=== PATIENT | male | born 1955 | race Caucasian/White ===

== ENCOUNTER 2019-12-23 03:10 | Inpatient (IN) | payer MEDICARE, OTHER, SELFPAY ==
[2019-12-23] VITALS (7 sets, daily range): BP systolic 106–152; BP diastolic 50–99; PULSE 74–90; RESP 16–20; TEMP 36.4–37.7; O2SAT 93–98
--- NOTE | ~2019-12-23 | XR_ITS ---
EXAMINATION: XR abdomen/kub 1V DATE: 12/27/2019 06:06 INDICATION: Perforated diverticulitis. Vomiting and bloating. TECHNIQUE: A supine view of the abdomen on 2 radiographs was obtained. COMPARISON: CT abdomen and pelvis 12/26/2019 FINDINGS: There are multiple dilated loops of small bowel. The colon is decompressed. IMPRESSION: 1. Dilated small bowel, consistent with small bowel obstruction. Reviewed, dictated and finalized at location A. E OPERATOR
--- NOTE | ~2019-12-23 | CT_ITS ---
EXAMINATION: CT abdomen pelvis w con DATE: 12/26/2019 08:03 INDICATION: Diverticulitis with perforation TECHNIQUE: Computed tomography (CT) of the abdomen and pelvis was performed without intravenous contr ast. Automated exposure control and iterative reconstruction technique were employed. Exam dose: 772 .99 mGy-cm total exam DLP. COMPARISON: 12/23/2019 CT abdomen pelvis FINDINGS: Mild bilateral pleural effusions. There is bilateral lower lobe atelectasis. The gallbladder is present. No gallbladder wall thickening or abnormal pericholecystic fluid or stran ding. No bile duct or pancreatic duct dilatation. No hepatic or pancreatic space-occupying mass lesio n. Normal splenic size. Normal morphology of the adrenal glands. No renal mass lesion. Nonobstructive mild lower pole left nephrolithiasis. No urinary tract calculus or hydroureteronephrosis. The urinary bladder is unremarkable. Moderate prostate enlargement and calc ification. Normal caliber of the abdominal aorta. No intraperitoneal or retroperitoneal or pelvic mass lesion or adenopathy. Normal appendix. There are numerous diverticula of the sigmoid and descending colon. There is pericolic stranding in t he sigmoid area and sigmoid wall thickening. There is prominent amount of intraperitoneal free air se condary to sigmoiditis/sigmoid colon perforation. There is an up to 5.6 cm wide and 5.5 cm anteropost erior dimension diverticular abscess with small fluid levels and prominent amount of air in the anter ior mid lower abdomen at the anterosuperior aspect of the urinary bladder. Diffuse idiopathic skeletal hyperostosis of the included lower thoracic spine. No suspicious osteolyt ic or osteoblastic lesions are noted. IMPRESSION: Perforated sigmoid diverticulitis, diverticular abscess, prominent amount of intraperito sal free air Mild bilateral pleural effusions, bilateral lower lobe atelectasis Nonobstructive lower pole left nephrolithiasis Reviewed, dictated and finalized at Location A. Reviewed, dictated and finalized at location A. CAL VAN DRIVER IMPRESSION: Perforated sigmoid diverticulitis, diverticular abscess, prominent amount of intraperitoneal free air Mild bilateral pleural effusions, bilateral lower lobe atelectasis Nonobstructive lower pole left nephrolithiasis
--- NOTE | ~2019-12-23 | XR_ITS ---
EXAMINATION: XR abdomen NG/feed tube insert EXAM DATE: 12/27/2019 10:04 INDICATION: Feeding tube insertion. Perforated sigmoid diverticulitis. TECHNIQUE: Frontal projection(s) of the abdomen for interpretation. Comparison is made to prior exami nation from earlier same date. FINDINGS: There is large amount of free intraperitoneal gas as was reported on yesterday's CT scan. There are several loops of moderately dilated air-filled small bowel, probably ileus. Lung bases are unremarkable. Feeding tube tip and side-port project over gastric cardia, adequate. IMPRESSION: 1. Feeding tube tip in position. 2. Free intraperitoneal air. 3. Dilated small bowel probably ileus. Reviewed, dictated and finalized at location A. ACCOUNTANT
--- NOTE | ~2019-12-23 | CT_ITS ---
EXAMINATION: CT abdomen pelvis wo con DATE: 12/23/2019 04:24 INDICATION: Lower abdominal pain TECHNIQUE: Computed tomography (CT) of the abdomen and pelvis was performed without intravenous contr ast. The dose-length product (DLP) was 798.01 mGy-cm. Automated exposure control and iterative recons truction technique were employed. COMPARISON: None FINDINGS: Minimal dependent atelectasis is present in the lung bases. The heart size is normal. The l iver, spleen, pancreas, gallbladder, and adrenal glands are normal. The right kidney is unremarkable. There is a 7 mm nonobstructing stone left kidney lower pole. No pathologically enlarged abdominal or pelvic lymph nodes are identified. There is sigmoid diverticulosis with wall thickening seen and a s hort segment of sigmoid colon with edematous stranding of the adjacent perisigmoid fat. There our foc i of free intraperitoneal gas adjacent to the colon which also tracks into the upper abdomen. No defi nite abscess is identified. The bladder is decompressed by Topete catheter. There is mild lumbar spond ylosis. IMPRESSION: 1. Perforated sigmoid diverticulitis. These findings were discussed with Dr. Rylan Monk MD in the Emergency Department at 0452 hours on 12/23/2019 by the [facility] Radiologist. 2. Nonobstructing left nephrolithiasis. Reviewed, dictated and finalized at location A. LASTER IMPRESSION: 1. Perforated sigmoid diverticulitis. These findings were discussed with Dr. Gina Monk MD in the Emergency Department at 0452 hours on 12/23/2019 by [facility] Radiologist. 2. Nonobstructing left nephrolithiasis.
--- NOTE | ~2019-12-23 | XR_ITS ---
EXAMINATION: XR abdomen NG/feed tube rechec INDICATION: Nasogastric tube placement TECHNIQUE: Portable AP KUB-NG at 1100 hours COMPARISON: 0530 hours, 12/28/2019, 12/27/2019 FINDINGS: The nasogastric tube is in the stomach. There is a large amount of free intraperitoneal gas . Air-fluid levels are seen in small bowel loops of the mid abdomen. IMPRESSION: 1. Slight increase in free intraperitoneal gas intraperitoneal gas, consistent with perforated sigmoi d diverticulitis. 2. Nasogastric tube in the stomach. 3. Small bowel obstruction. Reviewed, dictated and finalized at location A. DIRECTOR/FINANCE IMPRESSION: 1. Slight increase in free intraperitoneal gas intraperitoneal gas, consistent with perforated sigmoid diverticulitis. 2. Nasogastric tube in the stomach. 3. Small bowel obstruction.
--- NOTE | ~2019-12-23 | XR_ITS ---
EXAMINATION: XR abdomen/kub 1V DATE: 01/01/2020 05:32 INDICATION: Adynamic ileus. TECHNIQUE: A supine view of the abdomen was obtained. COMPARISON: Abdomen radiograph 12/30/2019, small bowel series 12/31/2019, CT abdomen and pelvis 12/26/19 20 FINDINGS: There are multiple dilated loops of small bowel. There is oral contrast in the colon, which is decompressed. There are scattered diverticula in the colon. The nasogastric tube tip is in the st omach. IMPRESSION: 1. Persistently dilated small bowel, consistent with adynamic ileus versus partial small bowel obstru ction. Reviewed, dictated and finalized at location A. ERSITY REGISTRAR IMPRESSION: 1. Persistently dilated small bowel, consistent with adynamic ileus versus part ial small bowel obstruction.
--- NOTE | ~2019-12-23 | XR_ITS ---
EXAMINATION: XR abdomen/kub 1V INDICATION: Small bowel obstruction TECHNIQUE: Supine views of the abdomen were obtained on 2 radiographs. COMPARISON: 12/28/2019 FINDINGS: There are persistently dilated loops of small bowel in the midabdomen which demonstrate sli ght decrease in caliber. The colon remains decompressed. Fewer foci of free intraperitoneal gas are i dentified. IMPRESSION: 1. Persistently dilated small bowel with slight in caliber, likely small bowel obstruction. 2. Fewer foci of free intraperitoneal gas identified. Reviewed, dictated and finalized at location A. EAR SECURITY OFFICER
--- NOTE | ~2019-12-23 | XR_ITS ---
XR abdomen/kub 1V 12/30/2019 05:41 Indication: Small bowel obstruction Procedure: KUB Comparison: Comparison to multiple prior studies sequentially, with oldest reviewed study dated 12/27. Findings: NG tube not definitely visualized on current study. There are dilated small bowel loops espinoza suring up to 4.8 cm. The colon is relatively decompressed. No abnormal calcifications. Impression: 1: Persistent small bowel dilation compatible with obstruction. Reviewed, dictated and finalized at location A. CTOR MISSION Impression: 1: Persistent small bowel dilation compatible with obstruction.
--- NOTE | ~2019-12-23 | XR_ITS ---
EXAMINATION: XR UGI water soluble w sbs DATE: 12/31/2019 10:00 INDICATION: Small bowel obstruction, perforated diverticulitis TECHNIQUE: Water-soluble contrast was infused through the nasogastric tube. Conventional supine abdom en radiographs and fluoroscopy of the stomach and small bowel were performed. Fluoroscopy exposure ti me was 2.7 minutes. The DAP for this procedure was 87 Gycm2. COMPARISON: 12/30/2019 FINDINGS: UPPER GASTROINTESTINAL SERIES: The stomach shows a normal folding pattern. No reflux was identified. Areas of free intraperitoneal g as were observed during real-time fluoroscopy. SMALL BOWEL SERIES: Obstetrics Gyn image demonstrates multiple persistently dilated loops of bowel in the midabdomen. The nasogast madeleine tube is in the stomach. Transit time from the stomach to proximal colon was approximately 90 deyvi anika. Terminal ileum is normal. No tethering or abnormal mass effect observed upon the small bowel wi th real-time fluoroscopy. Small bowel activity and peristalsis is decreased. IMPRESSION: 1. Findings consistent with small bowel ileus. 2. Free intraperitoneal gas, consistent with history of perforated diverticulitis. Reviewed, dictated and finalized at location A. BILITATION CASE COORDINATOR IMPRESSION: 1. Findings consistent with small bowel ileus. 2. Free intraperitoneal gas, consistent with history of perforated diverticulit is.
--- NOTE | ~2019-12-23 | XR_ITS ---
EXAMINATION: XR abdomen/kub 1V DATE: 12/28/2019 07:35 INDICATION: Small bowel obstruction. Abdominal discomfort. TECHNIQUE: A supine view of the abdomen on 2 radiographs was obtained. COMPARISON: CT abdomen and pelvis 12/26/2019 FINDINGS: There are multiple dilated loops of small bowel. The colon is decompressed. Free intraperit ring gas is again seen. The nasogastric tube tip is in the stomach. IMPRESSION: 1. Persistently dilated small bowel, likely small bowel obstruction. 2. Free intraperitoneal gas, consistent with perforated sigmoid diverticulitis. Reviewed, dictated and finalized at location A. MANAGER
[2019-12-23 03:33] LABS: Basophils Percent Auto 0.2 % (0.2-1.2); Hematocrit 45.3 % (42.0-52.0); Hemoglobin 15.3 g/dL (14.0-18.0); Immature Granulocyte Percent A 0.4 % (0-0.5); Lymphocytes Absolute Auto 3.17 K/mm3 (0.9-3.2); Lymphocytes Percent Auto 12.7 % (18.3-44.2); Mean Corpuscular HGB Conc 33.8 g/dl (32-36); Mean Corpuscular Hemoglobin 30.6 pg (26-34); Mean Corpuscular Volume 90.6 fl (80-100); Mean Platelet Volume 11.1 fl (7.4-10.4); Monocytes Absolute Auto 1.8 K/mm3 (0.1-0.6); Monocytes Percent Auto 7.3 % (2.6-8.5); Neutrophils Absolute Auto 19.8 K/mm3 (1.3-6.7); Neutrophils Percent Auto 79.4 % (45.5-73.1); Platelet Count Result 253 k/mm3 (150-375); Red Cell Distribution Width 12.7 % (11.5-14.5)
[2019-12-23 03:47] LABS: Alanine Aminotransferase 25 U/L (4-50); Albumin Level 4.5 g/dL (3.5-5.1); Alkaline Phosphatase 68 U/L (38-126); Aspartate Amino Transferase 22 U/L (17-59); Bilirubin,Total 0.4 mg/dL (0.2-1.3); Blood Urea Nitrogen 23 mg/dL (9-20); Calcium 9.2 mg/dL (8.4-10.2); Carbon Dioxide 23 mmol/L (22-30); Chloride 103 mmol/L (98-107); Estimated CRCL calculation 80 ml/min; Estimated Glomerular Filt Rate > 60; Glucose 162 mg/dL (75-110); Lipase 69 U/L (23-300); Potassium 3.9 mmol/L (3.4-5.0); Sodium 139 mmol/L (137-145)
[2019-12-23 04:15] LABS: Add Urine Microscopic? YES; Appearance Urine Clear (Clear); Bilirubin Urine Negative (Negative); Blood Urine 2+ (Negative); Color Urine Yellow (Yellow); Glucose Urine UA 3+ mg/dL (Negative); Ketones Urine Trace mg/dL (Negative); Leukocyte Esterase Ur Negative LEU/UL (Negative); Mucus Urine Rare /lpf; Nitrate Urine Negative (Negative); Protein Urine Negative (Negative); RBC Urine 21-50 /hpf (0-2); Specific Grav Ur 1.026 (1.001-1.035); Urobilinogen Urine Negative mg/dL (<2.0); WBC Urine 0-3 /hpf
[2019-12-23] MEDS: MORPHINE SULFATE 4 MG/ML INJ IV PUSH ×6 (04:37→22:55)
[2019-12-23] MEDS: ONDANSETRON INJ 4 MG/2 ML VIAL IV PUSH (04:38)
--- NOTE | 2019-12-23 04:55 | ED.ABDPAIN ---
HPI - Abdominal Pain General Chief Complaint: Abdominal Pain Stated Complaint: LOWER ABD PAIN Time Seen by Provider: 12/23/19 03:40 History of Present Illness HPI narrative: Patient is a 64-year-old male who presents the ER with lower abdominal pain. Began at 5 PM. Slowly increased throughout the night and then became very sharp around 1 AM. Pain is worsened by any movements. It is associated with some nausea and vomiting. Feels like he has to urinate but cannot at this time. Patient thought passing stool would help his pain but did not. Had not had a prodrome of diarrhea/fever/chills preceding this. No history of kidney stones. Denies blood in his urine. Related Data Home Medications Medication Instructions Recorded Confirmed ergocalciferol (vitamin D2) 1,250 50,000 unit PO WEEKLY 10/11/19 12/23/19 mcg (50,000 unit) capsule rosuvastatin 10 mg tablet 10 mg PO DAILY 10/11/19 12/23/19 hydrocodone-acetaminophen 2 tablet PO Q6-12H 12/23/19 12/23/19 prednisone 10 mg PO DAILY 12/23/19 12/23/19 Allergies Allergy/AdvReac Type Severity Reaction Status Date / Time No Known Allergies Allergy Mild Verified 12/23/19 03:19 Review of Systems Review of Systems: All systems reviewed & are unremarkable except as noted in HPI and below Constitutional: Constitutional: Denies chills, Denies fever(s) and Denies weakness ENT: Denies dizziness and Denies sore throat Cardiovascular: Cardiovascular: Denies chest pain and Denies rapid heart rate Respiratory: Respiratory: Denies chest congestion, Denies cough and Denies dyspnea Gastrointestinal: Gastrointestinal: Reports abdominal pain, Denies constipation, Denies diarrhea, Reports nausea and Reports vomiting Genitourinary: Genitourinary: Denies hematuria, Denies dysuria and Denies urinary frequency FORMERLY [facility], [facility]–1983 Past Medical History Medical History (Updated 12/23/19 @ 05:43 by Rylan Monk MD) Bunion of great toe Elevated random blood glucose level Mixed hyperlipidemia Surgical History Surgical History (Updated 12/21/19 @ 16:15 by Tricia Rodriguez MD) History of bunionectomy of right great toe History of surgical removal of meniscus of knee R andi Family History Family History (Updated 06/04/16 @ 23:21 by DOCTOR UNKNOWN) Mother Patient's mother is in good health Family history of elevated blood lipids Family history of malignant neoplasm of breast in first degree relative, Onset Age: 41 Father Patient's father is Family history of elevated blood lipids Social History Social History (Updated 12/21/19 @ 09:06 by Melissa Hernandez) Social History: Smoking status: Never smoker Second hand tobacco smoke exposure: No Alcohol intake: never Substance use: never Substance use type: does not use Gender identity (if verbalized by the patient): Male Exam Narrative: Exam Narrative: GENERAL: Uncomfortable-appearing, well-nourished, and in no acute distress. HEAD: Normocephalic, atraumatic. ENT: Mucous membranes moist. CHEST: Clear to auscultation. No respiratory distress. HEART: Regular rate and rhythm. Normal peripheral pulses. ABDOMEN: Soft, tender palpation bilateral lower quadrants left greater than right with guarding, nondistended, normal active bowel sounds. EXTREMITIES: Normal range of motion. No edema. SKIN: Warm, dry, no rash. NEURO: Alert and oriented x3. PSYCH: Normal mood and affect. Course Course Emergency Course: Patient informed of diagnosis and treatment plan. Accepted by general surgery. Started on Zosyn to treat infection. Will keep n.p.o. Vital Signs Vital signs: Vital Signs Temperature 97.6 F 12/23/19 03:11 Pulse Rate 78 12/23/19 03:11 Respiratory Rate 16 12/23/19 03:11 Blood Pressure 152/99 H 12/23/19 03:11 Pulse Oximetry 98 12/23/19 03:11 Temperature 97.6 F 12/23/19 03:11 Pulse Rate 74 12/23/19 05:09 Respiratory Rate 20 12/23/19 05:09 Blood Pressure 13
[2019-12-23 05:10] LABS: Prothrombin Time 13.1 Seconds (11.1-14.7)
[2019-12-23 05:11] LABS: Partial Thromboplastin Time 21.4 SECONDS (22.3-36.8)
--- NOTE | 2019-12-23 06:31 | ADMGEN ---
This patient, Huang Santamaria, was admitted to 3 [facility] Surg Room 300-01. Patient/family oriented to hospital policies and general routines including ID bracelet, bed and alarms, visiting hours, pain management, procedures, bathroom and other care routines, personal items, smoking policy, room service/diet, and visiting hours. Valuables list has been completed. Information on how to activate the Rapid Response Team has been discussed. Patient/Family are encouraged to report perceived risks to care and to ask questions if they do not understand what they are told or what they should do.
[2019-12-23] MEDS: SODIUM CHLORIDE 0.9% IV 1,000 ML 125 ML IV CONT (06:55)
--- NOTE | 2019-12-23 10:13 | PM.IMHP ---
H&P: HPI History of Present Illness Chief complaint: DIVERTUCULITIS WITH PERFOARTION Narrative: Huang Santamaria is a 64 year old male who saw his primary care doctor on , December 21 2019, for right lower back pain. This was diagnosed as sacroiliitis. He was started on 40 mg prednisone daily with a tapering dose. He took 40 mg of prednisone on Tuesday and again yesterday. He also was given a script for Tizanidine 2 mg p.o. t.i.d. p.r.n. for muscle spasticity. Yesterday, the patient started having lower abdominal pain in the evening about 5:00 p.m.. This pain was in both lower quadrants and was much worse with any movement. He felt as though he had to urinate but could not. He did have some nausea and vomiting. He tried to have a bowel movement thinking this would help but it did not either. Pain became very severe about 1:00 a.m. today and he came to the emergency room.. He was sewn comfortable he had walk somewhat doubled over. He was noted to have severe abdominal tenderness in both lower quadrants left more than right. He did abnormal active bowel sounds and was not distended. His white blood cell count however was quite elevated at 25,000. He was not febrile or tachycardic. CT scan of the abdomen and pelvis showed acute diverticulitis with some agata sigmoid free air. No sign of abscess or fistula were noted. He has not had diverticulitis before this episode. He is admitted now for acute treatment of diverticulitis. Review of Systems Review of Systems: All systems reviewed & are unremarkable except as noted in HPI and below Constitutional: Constitutional: Denies headache(s) ENT: Denies headache(s) Cardiovascular: Cardiovascular: Denies chest pain and Denies dyspnea Respiratory: Respiratory: Denies cough and Denies dyspnea Gastrointestinal: Gastrointestinal: Reports as per HPI Neurologic: Denies confusion and Denies headache(s) Psychiatric: Psychiatric: Denies confusion [facility] Past Medical History Medical History Bunion of great toe Elevated random blood glucose level Mixed hyperlipidemia Surgical History Surgical History History of bunionectomy of right great toe History of surgical removal of meniscus of knee R andi Family History Family History Mother Family history of elevated blood lipids Patient's mother is in good health Family history of malignant neoplasm of breast in first degree relative, Onset Age: 41 Father Family history of elevated blood lipids Patient's father is Skin cancer Social History Social History Social History: Smoking packs per day: 1 Smoking cigarettes per day: 20.0 Years smoked: 23 Smoking pack-years: 23.00 Smoking status: Former smoker Tobacco type: cigarettes Second hand tobacco smoke exposure: No Alcohol intake: former Drinks per week: 20 Substance use: never Substance use type: does not use Gender identity (if verbalized by the patient): Male Spiritual care concerns: No Agree to blood products: Yes Meds Home Medications and Allergies Home Medications Medication Instructions Recorded Confirmed Type ergocalciferol (vitamin D2) 1,250 50,000 unit PO WEEKLY 10/11/19 12/23/19 History mcg (50,000 unit) capsule rosuvastatin 10 mg tablet 10 mg PO DAILY 10/11/19 12/23/19 History tizanidine 2 mg tablet 2 mg PO TID PRN #30 tablet 12/21/19 12/23/19 Rx hydrocodone-acetaminophen 1 - 2 tablet PO Q6H PRN 12/23/19 12/23/19 History polyethylene glycol 3350 17 g PO DAILY PRN 12/23/19 12/23/19 History prednisone 10 mg PO DAILY 12/23/19 12/23/19 History vit A,C and V-[id number] [Eye 1 tablet PO DAILY 12/23/19 12/23/19 History Health Plus Lutein] Allergies Allergy/AdvReac Type Sev
[2019-12-23] MEDS: IBUPROFEN IV 800 MG/200 ML 800 MG/200 ML BAG 400 MG IVPB ×3 (13:28→22:57)
[2019-12-23] MEDS: FAMOTIDINE 20 MG/2 ML VIAL IV PUSH ×2 (13:29→20:09)
[2019-12-23] MEDS: ENOXAPARIN 40 MG/0.4 ML SYRINGE SUB-Q (13:29)
[2019-12-23] MEDS: LACTATED RINGERS 1,000 ML 100 ML IV CONT ×2 (15:43→23:37)
[2019-12-24] MEDS: MORPHINE SULFATE 4 MG/ML INJ IV PUSH ×3 (02:35→06:54)
[2019-12-24] MEDS: IBUPROFEN IV 800 MG/200 ML 800 MG/200 ML BAG 400 MG IVPB ×4 (05:26→23:35)
[2019-12-24 06:00] VITALS: BP 102/58; PULSE 86; RESP 18; TEMP 37.7; O2SAT 94
[2019-12-24 06:01] LABS: Blood Urea Nitrogen 18 mg/dL (9-20); Calcium 8.5 mg/dL (8.4-10.2); Carbon Dioxide 26 mmol/L (22-30); Chloride 100 mmol/L (98-107); Estimated CRCL calculation 72 ml/min; Estimated Glomerular Filt Rate > 60; Glucose 97 mg/dL (75-110); Hematocrit 38.9 % (42.0-52.0); Hemoglobin 12.7 g/dL (14.0-18.0); Mean Corpuscular HGB Conc 32.6 g/dl (32-36); Mean Corpuscular Hemoglobin 30.6 pg (26-34); Mean Corpuscular Volume 93.7 fl (80-100); Mean Platelet Volume 11.2 fl (7.4-10.4); Platelet Count Result 180 k/mm3 (150-375); Potassium 3.7 mmol/L (3.4-5.0); Red Blood Count 4.15 M/mm3 (4.6-6.20); Sodium 138 mmol/L (137-145); White Blood Count 17.2 K/mm3 (4.5-10.0)
[2019-12-24] MEDS: ENOXAPARIN 40 MG/0.4 ML SYRINGE SUB-Q (08:21)
[2019-12-24] MEDS: FAMOTIDINE 20 MG/2 ML VIAL IV PUSH ×2 (08:21→20:57)
--- NOTE | 2019-12-24 09:25 | WPDCDIQUERY2 ---
CDI Query Clarification Request - History of Present Illness Chief complaint: DIVERTUCULITIS WITH PERFORATION documented in H&P -Problem list has Diverticulitis of large intestine without perforation or abscess without bleeding Please clarify if diverticulitis is with or without perforation. <Geovanna Guerra RN - Last Filed: 12/24/19 09:28> Clarified Diagnosis (1) Diverticulitis large intestine: Code(s): K57.32 - Diverticulitis of large intestine without perforation or abscess without bleeding <Geovanna Guerra RN - Last Filed: 12/24/19 09:28> Status: Acute <Geovanna Guerra RN - Last Filed: 12/24/19 09:28> Assessment and Plan: This is confusing because all diverticulitis involves a perforation. In this case, the perforation occurred but has sealed at the time of admission. This is the case in nearly all episodes of diverticulitis. There is no code for diverticulitis of the large intestine with perforation without abscess to my knowledge. Thus, we are stuck with K 57.32. <Antwon Muñoz MD - Last Filed: 12/24/19 17:41>
[2019-12-24] MEDS: MORPHINE SULFATE 4 MG/ML INJ 5 MG IV PUSH ×3 (10:34→22:03)
[2019-12-24] MEDS: LACTATED RINGERS 1,000 ML 100 ML IV CONT (10:35)
[2019-12-24] MEDS: GENTAMICIN SULFATE INJ 400 MG in DEXTROSE 5% 100 ML 100 MG IVPB (10:35)
--- NOTE | 2019-12-24 11:01 | PM.PNGS ---
Progress Note: A&P Assessment and Plan (1) Diverticulitis large intestine: Code(s): K57.32 - Diverticulitis of large intestine without perforation or abscess without bleeding Status: Acute Assessment and Plan: Patient improving and WBC trending down, although still having a significant amount of abdominal pain. Will keep NPO except ice chips today Continue IV antibiotics Repeat labs in the am (2) Sacroiliitis: Code(s): M46.1 - Sacroiliitis, not elsewhere classified Status: Acute Assessment and Plan: Previously seen by his PCP. No significant complaints of back pain currently. (3) Current use of steroid medication: Code(s): Z79.52 - intermediate (current) use of systemic steroids Status: Acute Assessment and Plan: Steroids on hold. Subjective Subjective Date/Time Seen: 12/24/19 10:20 Patient reports: no new complaints, pain is less, no flatus and no bowel movement Interval history: Patient seen and examined. Reports he is still having generalized abdominal pain that is worse in the left lower abdomen. He does feel the pain is slightly better today. Denies nausea or vomiting since the ER. Still feels bloated. No other complaints at this time. Low grade fever overnight 37.7C. WBC down to 17,200 today. Review of Systems Review of Systems: All systems reviewed & are unremarkable except as noted in HPI and below Exam Const: General: comfortable, no acute distress, alert and awake GI: Inspection: non-distended GI Palp: Yes Firmness to palpation present (GI), Yes Tenderness to palpation present (GI) (diffusely tender but worse in the lower quadrants), Yes Guarding due to palpation present (GI) and No Rebound tenderness present Auscultation: normal bowel sounds Urinary Catheter: Urinary Catheter: patent and draining Skin: General skin exam: normal color Psych: Mental Status: mental status grossly normal Affect: normal affect Attitude: cooperative Thought process: Normal thought process present Objective Data Vital Signs Vital Signs: Vital Signs - 24 hr 12/23/19 13:39 12/23/19 21:39 12/24/19 06:00 Temperature 37.7 C H 37.7 C H 37.7 C H Pulse Rate 90 81 86 Respiratory Rate 20 16 18 Blood Pressure 108/61 106/50 L 102/58 L Pulse Oximetry 94 93 94 Intake/Output Intake/Output: Intake & Output 12/21/19 12/22/19 12/23/19 12/24/19 23:59 23:59 23:59 23:59 Intake Total 2710 1320 Output Total 700 350 Balance 2009 970 Meds/Results Medications: Active Medications Generic Name Dose Route Start Last Admin Trade Name Freq PRN Reason Stop Dose Admin Acetaminophen 1,000 mg 12/23/19 10:02 Tylenol Tablet PO Q6H PRN Mild Pain (1-3) or Fever Enoxaparin Sodium 40 mg 12/24/19 09:00 12/24/19 08:21 Lovenox SUB-Q 40 mg DAILY GHASSAN Administration Famotidine 20 mg 12/23/19 21:00 12/24/19 08:21 Pepcid Iv IV PUSH 20 mg Q12HR GHASSAN Administration Lactated Ringer's 1,000 mls @ 100 mls/hr 12/23/19 10:05 12/24/19 10:35 Lr - Lactated Ringers Iv IV CONT 100 mls/hr .Q10H GHASSAN Administration Ibuprofen 800 mg in 200 mls @ 400 mls/hr 12/23/19 12:00 12/24/19 06:25 Caldolor 800 Mg/200 Ml IVPB Infused Q6H GHASSAN Infusion Piperacillin/Tazobactam/Dextrose 3.375 gm in 50 mls @ 100 mls/hr 12/23/19 19:15 12/24/19 06:52 Zosyn 3.375 Gm/D5w 50ml Pm IVPB Infused Q6HR GHASSAN Infusion Gentamicin Sulfate 400 mg/ 110 mls @ 100 mls/hr 12/24/19 10:00 12/24/19 10:35 Dextrose IVPB 12/24/19 11:05 100 mls/hr ONCE ONE Administration Gentamicin Sulfate 400 mg/ 110 mls @ 100 mls/hr 12/25/19 10:00 Dextrose IVPB PRN PRN PHARMACY DOSING Morphine Sulfate 3 mg 12/24/19 08:51 Morphine Sulfate Inj IV PUSH Q2H PRN Pain Rated 4-6 Morphine Sulfate 5 mg 12/24/19 08:51 12/24/19 10:34 Morphine Sulfate Inj IV PUSH 5 mg Q2H PRN Administration Pain Rated 7-10 Naloxone HCl 0.1 mg
[2019-12-24 14:00] VITALS: BP 121/83; PULSE 74; RESP 18; TEMP 36.3; O2SAT 100
[2019-12-24] MEDS: ONDANSETRON INJ 4 MG/2 ML VIAL IV PUSH (16:49)
[2019-12-24] MEDS: ACETAMINOPHEN 500 MG TABLET 1000 MG PO (21:01)
[2019-12-24 21:50] LABS: Gentamicin Random 2.1 ug/mL (5.0-12.0)
[2019-12-24 22:00] VITALS: BP 104/60; PULSE 81; RESP 18; TEMP 37.4; O2SAT 98
[2019-12-25] MEDS: LACTATED RINGERS 1,000 ML 100 ML IV CONT (00:11)
[2019-12-25] MEDS: MORPHINE SULFATE 2 MG/ML INJ 3 MG IV PUSH ×2 (00:15→23:46)
[2019-12-25] MEDS: IBUPROFEN IV 800 MG/200 ML 800 MG/200 ML BAG 400 MG IVPB ×2 (05:54→11:56)
[2019-12-25] MEDS: ONDANSETRON INJ 4 MG/2 ML VIAL IV PUSH ×4 (05:58→23:28)
[2019-12-25 06:00] VITALS: BP 130/76; PULSE 77; RESP 18; TEMP 36.6; O2SAT 92
[2019-12-25 06:31] LABS: Hematocrit 36.8 % (42.0-52.0); Hemoglobin 12.1 g/dL (14.0-18.0); Mean Corpuscular HGB Conc 32.9 g/dl (32-36); Mean Corpuscular Hemoglobin 30.7 pg (26-34); Mean Corpuscular Volume 93.4 fl (80-100); Mean Platelet Volume 11.5 fl (7.4-10.4); Platelet Count Result 165 k/mm3 (150-375); Red Blood Count 3.94 M/mm3 (4.6-6.20); Red Cell Distribution Width 12.9 % (11.5-14.5); White Blood Count 15.9 K/mm3 (4.5-10.0)
[2019-12-25 06:41] LABS: Blood Urea Nitrogen 18 mg/dL (9-20); Calcium 8.6 mg/dL (8.4-10.2); Carbon Dioxide 25 mmol/L (22-30); Chloride 97 mmol/L (98-107); Estimated CRCL calculation 61 ml/min; Estimated Glomerular Filt Rate > 60; Glucose 114 mg/dL (75-110); Potassium 3.4 mmol/L (3.4-5.0); Sodium 138 mmol/L (137-145)
[2019-12-25] MEDS: FAMOTIDINE 20 MG/2 ML VIAL IV PUSH ×2 (08:38→21:09)
[2019-12-25] MEDS: ENOXAPARIN 40 MG/0.4 ML SYRINGE SUB-Q (08:39)
[2019-12-25] MEDS: GENTAMICIN SULFATE INJ 400 MG in DEXTROSE 5% 100 ML 100 MG IVPB (08:50)
--- NOTE | 2019-12-25 10:26 | PM.PNGS ---
Progress Note: A&P Assessment and Plan (1) Diverticulitis large intestine: Code(s): K57.32 - Diverticulitis of large intestine without perforation or abscess without bleeding Status: Acute Assessment and Plan: Patient clinically improving and WBC continues to trend down today to 15,000. His abdomen is still pretty tender. Will keep NPO except ice chips today Continue IV antibiotics Repeat labs in the am (2) Sacroiliitis: Code(s): M46.1 - Sacroiliitis, not elsewhere classified Status: Acute Assessment and Plan: Has seen his PCP for this. No complaints of back pain at this time. (3) Current use of steroid medication: Code(s): Z79.52 - longterm (current) use of systemic steroids Status: Acute Assessment and Plan: Oral steroids on hold in light of current acute diverticulitis with perforation. Subjective Subjective Date/Time Seen: 12/25/19 09:26 Patient reports: no new complaints, feels better, pain is less, flatus, no bowel movement and bowel movement Interval history: Patient seen and examined. Reports having some mild nausea this morning but no vomiting. States bloating and abdominal pain has improved some today. Reports flatus but no BM. He feels like he is breathing faster when lying flat but denies any shortness of breath with walking or activity. Voiding without any difficulty since Topete was removed. Afebrile in the past 24 hours. WBC trending down. No other complaints at this time. Review of Systems Review of Systems: All systems reviewed & are unremarkable except as noted in HPI and below Exam Const: General: comfortable, no acute distress, alert and awake GI: Inspection: non-distended GI Palp: Yes abdominal tenderness (Diffusely tender but increased tenderness in the lower abdomen), Yes Firmness to palpation present (GI) (still slightly firm but definitely softer today), Yes Guarding due to palpation present (GI) (specifically in lower abdomen) and No Rebound tenderness present Auscultation: Hypoactive bowel sounds present Skin: General skin exam: normal color Psych: Mental Status: mental status grossly normal Attitude: cooperative Thought process: Normal thought process present Objective Data Vital Signs Vital Signs: Vital Signs - 24 hr 12/24/19 14:00 12/24/19 22:00 12/25/19 06:00 Temperature 36.3 C L 37.4 C 36.6 C Pulse Rate 74 81 77 Respiratory Rate 18 18 18 Blood Pressure 121/83 104/60 130/76 Pulse Oximetry 100 98 92 Intake/Output Intake/Output: Intake & Output 12/22/19 12/23/19 12/24/19 12/25/19 23:59 23:59 23:59 23:59 Intake Total 2710 3000 590 Output Total 700 600 Balance 2009 2400 590 Meds/Results Medications: Active Medications Generic Name Dose Route Start Last Admin Trade Name Freq PRN Reason Stop Dose Admin Acetaminophen 1,000 mg 12/23/19 10:02 12/24/19 21:01 Tylenol Tablet PO 1,000 mg Q6H PRN Administration Mild Pain (1-3) or Fever Enoxaparin Sodium 40 mg 12/24/19 09:00 12/25/19 08:39 Lovenox SUB-Q 40 mg DAILY GHASSAN Administration Famotidine 20 mg 12/23/19 21:00 12/25/19 08:38 Pepcid Iv IV PUSH 20 mg Q12HR GHASSAN Administration Lactated Ringer's 1,000 mls @ 100 mls/hr 12/23/19 10:05 12/25/19 00:11 Lr - Lactated Ringers Iv IV CONT 100 mls/hr .Q10H GHASSAN Administration Ibuprofen 800 mg in 200 mls @ 400 mls/hr 12/23/19 12:00 12/25/19 06:24 Caldolor 800 Mg/200 Ml IVPB Infused Q6H GHASSAN Infusion Piperacillin/Tazobactam/Dextrose 3.375 gm in 50 mls @ 100 mls/hr 12/23/19 19:15 12/25/19 07:04 Zosyn 3.375 Gm/D5w 50ml Pm IVPB Infused Q6HR [facility]AN Infusion Gentamicin Sulfate 400 mg/ 110 mls @ 100 mls/hr 12/25/19 10:00 12/25/19 08:50 Dextrose IVPB 100 mls/hr Q24H [facility]ASSAN Administration Morphine Sulfate 3 mg 12/24/19 08:51 12/25/19 00:15 Morphine Sulfate Inj IV PUSH 3 mg Q2H PRN Administration Pain Rated 4-6 Morphine Sulfate 5 mg 0
[2019-12-25 14:00] VITALS: BP 107/71; PULSE 72; RESP 16; TEMP 36.8; O2SAT 91
[2019-12-25] MEDS: KCL 40 MEQ/D5/0.9% SOD CHL 1,000 ML 125 ML IV CONT ×2 (15:31→23:49)
[2019-12-25 22:00] VITALS: BP 145/80; PULSE 70; RESP 18; TEMP 36.6; O2SAT 96
[2019-12-26 06:00] VITALS: BP 140/84; PULSE 72; RESP 18; TEMP 36.9; O2SAT 99
[2019-12-26] MEDS: ONDANSETRON INJ 4 MG/2 ML VIAL IV PUSH ×3 (06:00→09:13)
[2019-12-26 06:21] LABS: Hematocrit 34.4 % (42.0-52.0); Hemoglobin 11.7 g/dL (14.0-18.0); Mean Platelet Volume 11.8 fl (7.4-10.4); Platelet Count Result 196 k/mm3 (150-375); Red Blood Count 3.78 M/mm3 (4.6-6.20); Red Cell Distribution Width 12.8 % (11.5-14.5); White Blood Count 16.4 K/mm3 (4.5-10.0)
[2019-12-26 06:30] LABS: Blood Urea Nitrogen 16 mg/dL (9-20); Calcium 8.4 mg/dL (8.4-10.2); Carbon Dioxide 28 mmol/L (22-30); Chloride 101 mmol/L (98-107); Estimated CRCL calculation 72 ml/min; Estimated Glomerular Filt Rate > 60; Glucose 149 mg/dL (75-110); Potassium 3.6 mmol/L (3.4-5.0); Sodium 138 mmol/L (137-145)
--- NOTE | 2019-12-26 07:32 | PM.PNGS ---
Progress Note: A&P Assessment and Plan (1) Diverticulitis large intestine: Code(s): K57.32 - Diverticulitis of large intestine without perforation or abscess without bleeding Status: Acute Assessment and Plan: Nausea and some bloating noted this morning. Bowel sounds are now absent. Patient is slightly distended. White blood cell count higher than yesterday although not significantly higher. Pain is much better which of course is a good sign. I will go ahead and get a CT scan of the abdomen and pelvis to evaluate for abscess or small-bowel obstruction. If negative will probably try some clear liquids. Continue Zosyn and gentamicin as well as IV fluids for now. Subjective Subjective Date/Time Seen: 12/26/19 07:32 Pain is definitely better. Patient has a requested pain medication since yesterday. Still complains of insomnia. Also notices bloating and some mild nausea. Review of Systems Review of Systems: All systems reviewed & are unremarkable except as noted in HPI and below Constitutional: Constitutional: Denies headache(s) ENT: Denies headache(s) Cardiovascular: Cardiovascular: Denies chest pain and Denies dyspnea Respiratory: Respiratory: Denies cough and Denies dyspnea Gastrointestinal: Gastrointestinal: Reports as per HPI Neurologic: Denies confusion and Denies headache(s) Psychiatric: Psychiatric: Denies confusion Exam Const: General: comfortable and no acute distress; No confusion Orientation/consciousness: patient oriented x3 and No confusion Resp: Effort & Inspection: normal respiratory effort Auscultation: clear to auscultation bilaterally Cardio: Rate: regular rate Rhythm: regular rhythm GI: Inspection: distended and obesity GI Palp: Yes Soft to palpation, No Tenderness to palpation present (GI), No Guarding due to palpation present (GI), No Hernia present, No Palpable mass present and No Rebound tenderness present Auscultation: absent bowel sounds Neuro: General: patient oriented x3, no focal motor deficits and No confusion Extrem: General: no calf tenderness and no edema Psych: Affect: normal affect Insight: Good insight present (Psych) Judgement: Good judgement present (Psych) Objective Data Vital Signs Vital Signs: Vital Signs - 24 hr 12/25/19 14:00 12/25/19 22:00 12/26/19 06:00 Temperature 36.8 C 36.6 C 36.9 C Pulse Rate 72 70 72 Respiratory Rate 16 18 18 Blood Pressure 107/71 145/80 H 140/84 Pulse Oximetry 91 96 99 Intake/Output Intake/Output: Intake & Output 12/23/19 12/24/19 12/25/19 12/26/19 23:59 23:59 23:59 23:59 Intake Total 2710 3110 3230 0 Output Total 700 600 Balance 2009 2510 3230 0 Meds/Results Medications: Active Medications Generic Name Dose Route Start Last Admin Trade Name Freq PRN Reason Stop Dose Admin Acetaminophen 1,000 mg 12/23/19 10:02 12/24/19 21:01 Tylenol Tablet PO 1,000 mg Q6H PRN Administration Mild Pain (1-3) or Fever Enoxaparin Sodium 40 mg 12/24/19 09:00 12/25/19 08:39 Lovenox SUB-Q 40 mg DAILY GHASSAN Administration Famotidine 20 mg 12/23/19 21:00 12/25/19 21:09 Pepcid Iv IV PUSH 20 mg Q12HR GHASSAN Administration Piperacillin/Tazobactam/Dextrose 3.375 gm in 50 mls @ 100 mls/hr 12/23/19 19:15 12/26/19 05:55 Zosyn 3.375 Gm/D5w 50ml Pm IVPB 100 mls/hr Q6HR GHASSAN Administration Gentamicin Sulfate 400 mg/ 110 mls @ 100 mls/hr 12/25/19 10:00 12/25/19 09:56 Dextrose IVPB Infused Q24H GHASSAN Infusion Potassium Chloride/Dextrose/Sod Cl 1,000 mls @ 125 mls/hr 12/25/19 15:00 12/25/19 23:49 Kcl 40 Meq/D5ns IV CONT 125 mls/hr .Q8H GHASSAN Administration Morphine Sulfate 3 mg 12/24/19 08:51 12/25/19 23:46 Morphine Sulfate Inj IV PUSH 3 mg Q2H PRN Administration Pain Rated 4-6 Morphine Sulfate 5 mg 12/24/19 08:51 12/24/19 22:03 Morphine Sulfate Inj IV PUSH 5 mg Q2H PRN Administration Pain Rated 7-10 Naloxone HCl 0.1 mg
[2019-12-26 08:00] VITALS: PULSE 72; RESP 18; O2SAT 99
[2019-12-26] MEDS: KCL 40 MEQ/D5/0.9% SOD CHL 1,000 ML 125 ML IV CONT ×2 (09:10→18:12)
[2019-12-26] MEDS: ENOXAPARIN 40 MG/0.4 ML SYRINGE SUB-Q (09:11)
[2019-12-26] MEDS: FAMOTIDINE 20 MG/2 ML VIAL IV PUSH ×2 (09:13→21:13)
[2019-12-26] MEDS: GENTAMICIN SULFATE INJ 400 MG in DEXTROSE 5% 100 ML 100 MG IVPB (09:16)
[2019-12-26] MEDS: MORPHINE SULFATE 2 MG/ML INJ 3 MG IV PUSH (14:10)
[2019-12-26 15:14] VITALS: BP 147/84; PULSE 67; RESP 16; TEMP 37.3; O2SAT 95
[2019-12-26 21:44] VITALS: BP 164/97; PULSE 69; RESP 20; TEMP 37.5; O2SAT 97
[2019-12-27] MEDS: ONDANSETRON INJ 4 MG/2 ML VIAL IV PUSH ×2 (00:56→09:11)
[2019-12-27] MEDS: MORPHINE SULFATE 2 MG/ML INJ 3 MG IV PUSH (01:01)
[2019-12-27] MEDS: KCL 40 MEQ/D5/0.9% SOD CHL 1,000 ML 125 ML IV CONT (04:45)
[2019-12-27 06:00] VITALS: BP 176/96; PULSE 68; RESP 20; TEMP 36.9; O2SAT 99
[2019-12-27 06:09] LABS: Hematocrit 36.6 % (42.0-52.0); Mean Corpuscular HGB Conc 32.8 g/dl (32-36); Mean Corpuscular Hemoglobin 30.2 pg (26-34); Mean Corpuscular Volume 92.2 fl (80-100); Mean Platelet Volume 10.9 fl (7.4-10.4); Platelet Count Result 223 k/mm3 (150-375); Red Blood Count 3.97 M/mm3 (4.6-6.20); Red Cell Distribution Width 13.1 % (11.5-14.5)
[2019-12-27 06:27] LABS: Blood Urea Nitrogen 17 mg/dL (9-20); Calcium 8.4 mg/dL (8.4-10.2); Carbon Dioxide 25 mmol/L (22-30); Chloride 105 mmol/L (98-107); Estimated CRCL calculation 80 ml/min; Estimated Glomerular Filt Rate > 60; Glucose 153 mg/dL (75-110); Potassium 3.9 mmol/L (3.4-5.0); Sodium 138 mmol/L (137-145)
--- NOTE | 2019-12-27 09:05 | PM.PNGS ---
Progress Note: A&P Assessment and Plan (1) Diverticulitis large intestine: Code(s): K57.32 - Diverticulitis of large intestine without perforation or abscess without bleeding Status: Acute Assessment and Plan: Pain is improving and WBC down to 15,000 today. Although, he is now having more nausea and bloating with vomiting. Bowel sounds remain absent and his abdomen is distended. Abdominal x-ray today showed evidence of a small bowel obstruction. Will place an NG tube for decompression, keep him NPO, and start TPN nutrition with [employer]im[employer]. PICC line also ordered. Continue IV Zosyn and gentamicin. Continue antiemetics and analgesics. Will continue to monitor with serial abdominal exams and x-rays. (2) Small bowel obstruction: Code(s): K56.609 - Unspecified intestinal obstruction, unspecified as to partial versus complete obstruction Status: Acute Assessment and Plan: See plan above. Additional Plan Discussed plan of care with Dr. Muñoz. Subjective Subjective Date/Time Seen: 12/27/19 08:45 Patient reports: pain is less, bowel movement, nausea and vomiting Interval history: Patient seen and examined this morning. Reports feeling bloated and nauseous today. Vomited once last night and had some dry heaving. Reports having a good sized bowel movement overnight as well. Reports abdominal pain is less, he just feels pressure from the bloating. No other complaints at this time. Review of Systems Review of Systems: All systems reviewed & are unremarkable except as noted in HPI and below Exam Const: General: no acute distress, alert, awake and uncomfortable Orientation/consciousness: patient oriented x3 Resp: Effort & Inspection: normal respiratory effort Auscultation: crackles bilateral in the lower lung elizalde and other (CTA other than mentioned) Cardio: Rate: regular rate Rhythm: regular rhythm GI: Inspection: distended GI Palp: Yes Firmness to palpation present (GI) (fullness to the abdomen), Yes Tenderness to palpation present (GI) (lower abdominal tenderness), No Guarding due to palpation present (GI) and No Rebound tenderness present Auscultation: absent bowel sounds Skin: General skin exam: normal color Neuro: General: no focal motor deficits Extrem: General: no edema Psych: Mental Status: mental status grossly normal Attitude: cooperative Objective Data Vital Signs Vital Signs: Vital Signs - 24 hr 12/26/19 15:14 12/26/19 21:44 12/27/19 06:00 Temperature 37.3 C 37.5 C 36.9 C Pulse Rate 67 69 68 Respiratory Rate 16 20 20 Blood Pressure 147/84 H 164/97 H 176/96 H Pulse Oximetry 95 97 99 Intake/Output Intake/Output: Intake & Output 12/24/19 12/25/19 12/26/19 12/27/19 23:59 23:59 23:59 23:59 Intake Total 3110 3230 2260 1130 Output Total 600 860 700 Balance 2510 3230 1400 430 Meds/Results Medications: Active Medications Generic Name Dose Route Start Last Admin Trade Name Freq PRN Reason Stop Dose Admin Acetaminophen 1,000 mg 12/23/19 10:02 12/24/19 21:01 Tylenol Tablet PO 1,000 mg Q6H PRN Administration Mild Pain (1-3) or Fever Enoxaparin Sodium 40 mg 12/24/19 09:00 12/26/19 09:11 Lovenox SUB-Q 40 mg DAILY GHASSAN Administration Famotidine 20 mg 12/23/19 21:00 12/26/19 21:13 Pepcid Iv IV PUSH 20 mg Q12HR GHASSAN Administration Piperacillin/Tazobactam/Dextrose 3.375 gm in 50 mls @ 100 mls/hr 12/23/19 19:15 12/27/19 06:41 Zosyn 3.375 Gm/D5w 50ml Pm IVPB Infused Q6HR GH[facility]AN Infusion Gentamicin Sulfate 400 mg/ 110 mls @ 100 mls/hr 12/25/19 10:00 12/26/19 10:20 Dextrose IVPB Infused Q24H GHASSAN Infusion Dextrose 1,000 mls @ 50 mls/hr 12/27/19 08:21 Dextrose 10% IV CONT .Q20H PRN if PN is interrupted Multivitamins 5 ml/ Amino 2,005 mls @ 40 mls/hr 12/27/19 14:00 Acids/Electrolytes/Dextrose IV CONT .Q24H GHASSAN Protocol Fat Emulsion Intravenous 250 mls @ 20.833 mls/hr 12/27/19 14:0
[2019-12-27] MEDS: ENOXAPARIN 40 MG/0.4 ML SYRINGE SUB-Q (09:11)
[2019-12-27] MEDS: FAMOTIDINE 20 MG/2 ML VIAL IV PUSH ×2 (09:12→22:00)
[2019-12-27] MEDS: MORPHINE SULFATE 4 MG/ML INJ 5 MG IV PUSH ×2 (09:18→22:00)
[2019-12-27 10:18] LABS: Basophils Percent Auto 0.2 % (0.2-1.2); Eosinophils Percent Auto 0.2 % (0-4.4); Hematocrit 37.8 % (42.0-52.0); Hemoglobin 12.5 g/dL (14.0-18.0); Immature Granulocyte Absolute 0.27 K/mm3 (0.00-0.031); Immature Granulocyte Percent A 1.9 % (0-0.5); Lymphocytes Absolute Auto 1.03 K/mm3 (0.9-3.2); Lymphocytes Percent Auto 7.3 % (18.3-44.2); Mean Corpuscular HGB Conc 33.1 g/dl (32-36); Mean Corpuscular Hemoglobin 30.6 pg (26-34); Mean Corpuscular Volume 92.4 fl (80-100); Mean Platelet Volume 10.8 fl (7.4-10.4); Monocytes Percent Auto 6.7 % (2.6-8.5); Neutrophils Absolute Auto 11.8 K/mm3 (1.3-6.7); Neutrophils Percent Auto 83.7 % (45.5-73.1); Platelet Count Result 223 k/mm3 (150-375); Red Blood Count 4.09 M/mm3 (4.6-6.20); Red Cell Distribution Width 13.2 % (11.5-14.5); White Blood Count 14.1 K/mm3 (4.5-10.0)
[2019-12-27 10:31] LABS: Partial Thromboplastin Time 25.6 SECONDS (22.3-36.8)
[2019-12-27 10:33] LABS: Alanine Aminotransferase 24 U/L (4-50); Albumin Level 3.4 g/dL (3.5-5.1); Alkaline Phosphatase 82 U/L (38-126); Aspartate Amino Transferase 22 U/L (17-59); Bilirubin,Total 0.6 mg/dL (0.2-1.3); Blood Urea Nitrogen 17 mg/dL (9-20); Calcium 8.6 mg/dL (8.4-10.2); Carbon Dioxide 23 mmol/L (22-30); Chloride 104 mmol/L (98-107); Estimated CRCL calculation 80 ml/min; Estimated Glomerular Filt Rate > 60; Glucose 162 mg/dL (75-110); Magnesium 2.1 mg/dL (1.6-2.3); Sodium 139 mmol/L (137-145)
[2019-12-27 10:40] LABS: Transferrin 156 mg/dL (206-381)
[2019-12-27 10:42] VITALS: BMI 34.5
[2019-12-27] MEDS: GENTAMICIN SULFATE INJ 400 MG in DEXTROSE 5% 100 ML 100 MG IVPB (11:13)
[2019-12-27 14:00] VITALS: BP 124/78; PULSE 70; RESP 18; TEMP 37.1; O2SAT 100
--- NOTE | 2019-12-27 14:13 | PCNSR ---
On 12/27/19, the student, [ ], provided care and completed [employer] documentation on this patient. I have reviewed the student's documentation and agree with the findings.
--- NOTE | 2019-12-27 14:13 | PCNSR ---
On 12/27/19, the student, [Debbie Baeza ], provided care and completed [facility] documentation on this patient. I have reviewed the student's documentation and agree with the findings.
[2019-12-27] MEDS: LIDOCAINE HCL 1% PF INJ 5 ML VIAL INFILTRATE (14:15)
[2019-12-27] MEDS: FAT EMULSIONS IV 20% 250 ML 20.8 ML IVPB (15:38)
[2019-12-27 18:24] LABS: Glucose Point of Care 141 (65-105)
[2019-12-27 22:00] VITALS: BP 170/98; PULSE 69; RESP 20; TEMP 36.9; O2SAT 96
[2019-12-27 22:39] LABS: Gentamicin Random 0.8 ug/mL (5.0-12.0)
[2019-12-28 01:51] LABS: Glucose Point of Care 153 (65-105)
[2019-12-28] MEDS: FAT EMULSIONS IV 20% 250 ML 20.8 ML IVPB (03:45)
[2019-12-28 06:00] VITALS: BP 172/82; PULSE 67; RESP 18; TEMP 36.8; O2SAT 95
[2019-12-28 06:12] LABS: Glucose Point of Care 142 (65-105)
--- NOTE | 2019-12-28 07:29 | PM.PNGS ---
Progress Note: A&P Assessment and Plan (1) Small bowel obstruction: Code(s): K56.609 - Unspecified intestinal obstruction, unspecified as to partial versus complete obstruction Status: Acute Assessment and Plan: Pending KUB but patient now has bowel sounds and is less distended than he was yesterday or or the day before. White blood cell count is decreased to 14,000. not very much out of the NG tube but it was in good position yesterday on the post insertion film. Continue NG to suction. Continue NPO except sips and ice chips. Continue TPN. Seems to be making progress. (2) Protein-calorie malnutrition, moderate: Code(s): E44.0 - Moderate protein-calorie malnutrition Status: Acute Assessment and Plan: TPN started yesterday. Labs look good. Continue current TPN. (3) Diverticulitis large intestine: Code(s): K57.32 - Diverticulitis of large intestine without perforation or abscess without bleeding Status: Acute Assessment and Plan: Now on day 5 of Zosyn and day four of gentamicin. No longer having any lower abdominal pain. (4) Current use of steroid medication: Code(s): Z79.52 - residential (current) use of systemic steroids Status: Acute Assessment and Plan: Took 2 doses of 60 mg prednisone prior to onset of diverticulitis. Has not had any since. (5) Sacroiliitis: Code(s): M46.1 - Sacroiliitis, not elsewhere classified Status: Chronic Assessment and Plan: Patient currently has a pillow under his lumbar spine. Needs to be up in the chair and up walking more. Subjective Subjective Date/Time Seen: 12/28/19 07:29 nausea of was gone but returned about 5:00 a.m. this morning. Not as bad as before he had NG tube placed. Really no pelvic pain any more. Review of Systems Review of Systems: All systems reviewed & are unremarkable except as noted in HPI and below Constitutional: Constitutional: Denies headache(s) ENT: Denies headache(s) Cardiovascular: Cardiovascular: Denies chest pain and Denies dyspnea Respiratory: Respiratory: Denies cough and Denies dyspnea Gastrointestinal: Gastrointestinal: Reports as per HPI Neurologic: Denies confusion and Denies headache(s) Psychiatric: Psychiatric: Denies confusion Exam Const: General: comfortable and no acute distress; No confusion Orientation/consciousness: patient oriented x3 and No confusion Resp: Effort & Inspection: normal respiratory effort Auscultation: clear to auscultation bilaterally Cardio: Rate: regular rate Rhythm: regular rhythm GI: Inspection: distended GI Palp: Yes Soft to palpation, No Tenderness to palpation present (GI), No Guarding due to palpation present (GI) and No Rebound tenderness present Auscultation: Hypoactive bowel sounds present ( This is improved, no bowel sounds previous 48 hours.) Neuro: General: patient oriented x3, no focal motor deficits and No confusion Extrem: General: no calf tenderness and no edema Psych: Affect: normal affect Insight: Good insight present (Psych) Judgement: Good judgement present (Psych) Objective Data Vital Signs Vital Signs: Vital Signs - 24 hr 12/27/19 14:00 12/27/19 22:00 12/28/19 06:00 Temperature 37.1 C 36.9 C 36.8 C Pulse Rate 70 69 67 Respiratory Rate 18 20 18 Blood Pressure 124/78 170/98 H 172/82 H Pulse Oximetry 100 96 95 Intake/Output Intake/Output: Intake & Output 12/25/19 12/26/19 12/27/19 12/28/19 23:59 23:59 23:59 23:59 Intake Total 3230 2260 1340 330 Output Total 860 1700 1050 Balance 3230 1400 -360 -720 Meds/Results Medications: Active Medications Generic Name Dose Route Start Last Admin Trade Name Freq PRN Reason Stop Dose Admin Acetaminophen 1,000 mg 12/23/19 10:02 12/24/19 21:01 Tylenol Tablet PO 1,000 mg Q6H PRN Administration Mild Pain (1-3) or Fever Enoxaparin Sodium 40 mg 12/24/19 09:00 12/27/19 09:11 Lovenox SUB-Q
[2019-12-28 08:00] VITALS: PULSE 67; RESP 18; O2SAT 95
[2019-12-28] MEDS: FAMOTIDINE 20 MG/2 ML VIAL IV PUSH ×2 (09:17→20:35)
[2019-12-28] MEDS: ENOXAPARIN 40 MG/0.4 ML SYRINGE SUB-Q (09:17)
[2019-12-28] MEDS: GENTAMICIN SULFATE INJ 400 MG in DEXTROSE 5% 100 ML 125 MG IVPB (09:18)
[2019-12-28 12:03] LABS: Triglycerides 196 mg/dL (<150)
[2019-12-28 13:34] LABS: Glucose Point of Care 151 (65-105)
[2019-12-28 14:00] VITALS: BP 153/80; PULSE 73; RESP 16; TEMP 36.7; O2SAT 97
--- NOTE | 2019-12-28 14:12 | PCDIET ---
Nutrition Follow-Up Complete: Altered GI function related to diverticulitis as evidenced by N/V and abdominal pain. Pt will tolerate TPN formula and advancement to goal rate Goal met - pt tolerating TPN at 40mls/hr and Lipids 20% 250mls @ 20.833mls/hr Nutrition recommendation: Recommend rate slowly increase by 10mls Q4, as tolerated, to goal rate of 80mls/hr in order to meet pt's nutritional needs. Last recorded weight is 94.6 kg. Bowel Motility:+BM 12/27 Labs Reviewed:TGs(196), POC Cap Glu(151) Meds Noted:lovenox, piperacilin, pepcid Additional Notes: Spoke w/ pt this morning. Stated abdominal pain subsided and nausea is less then when first admitted. Will monitor labs and tolerance. Will follow up T/F.
--- NOTE | 2019-12-28 14:49 | PCNSR ---
On 12/28/19, the student, Debbie Baeza, provided care and completed [facility] documentation on this patient. I have reviewed the student's documentation and agree with the findings.
[2019-12-28 18:48] LABS: Glucose Point of Care 145 (65-105)
[2019-12-28] MEDS: MORPHINE SULFATE 2 MG/ML INJ 3 MG IV PUSH (20:35)
[2019-12-28 22:00] VITALS: BP 146/81; PULSE 79; RESP 18; TEMP 37.3; O2SAT 96
[2019-12-29 00:23] LABS: Glucose Point of Care 170 (65-105)
[2019-12-29 06:00] VITALS: BP 148/88; PULSE 76; RESP 18; TEMP 36.9; O2SAT 97
[2019-12-29 06:22] LABS: Hematocrit 43.1 % (42.0-52.0); Hemoglobin 14.5 g/dL (14.0-18.0); Mean Corpuscular HGB Conc 33.6 g/dl (32-36); Mean Corpuscular Hemoglobin 30.5 pg (26-34); Mean Corpuscular Volume 90.5 fl (80-100); Mean Platelet Volume 10.8 fl (7.4-10.4); Platelet Count Result 236 k/mm3 (150-375); Red Blood Count 4.76 M/mm3 (4.6-6.20); Red Cell Distribution Width 12.8 % (11.5-14.5); White Blood Count 17.8 K/mm3 (4.5-10.0)
[2019-12-29 06:24] LABS: Blood Urea Nitrogen 21 mg/dL (9-20); Calcium 8.4 mg/dL (8.4-10.2); Carbon Dioxide 27 mmol/L (22-30); Chloride 95 mmol/L (98-107); Estimated CRCL calculation 87 ml/min; Estimated Glomerular Filt Rate > 60; Glucose 157 mg/dL (75-110); Phosphorus 3.8 mg/dL (2.5-4.5); Potassium 3.5 mmol/L (3.4-5.0); Sodium 132 mmol/L (137-145)
[2019-12-29 06:49] LABS: Glucose Point of Care 158 (65-105)
[2019-12-29 07:45] VITALS: PULSE 76; RESP 18; O2SAT 97
[2019-12-29] MEDS: FAMOTIDINE 20 MG/2 ML VIAL IV PUSH ×2 (09:09→20:12)
[2019-12-29] MEDS: ENOXAPARIN 40 MG/0.4 ML SYRINGE SUB-Q (09:09)
[2019-12-29] MEDS: GENTAMICIN SULFATE INJ 400 MG in DEXTROSE 5% 100 ML 100 MG IVPB (09:10)
[2019-12-29 11:37] LABS: Glucose Point of Care 157 (65-105)
--- NOTE | 2019-12-29 15:06 | PM.PNGS ---
Progress Note: A&P Assessment and Plan (1) Diverticulitis large intestine: Qualifiers: Diverticulitis bleeding: without bleeding Diverticulitis complication: with perforation and without abscess Qualified Code(s): K57.20 - Diverticulitis of large intestine with perforation and abscess without bleeding Code(s): K57.32 - Diverticulitis of large intestine without perforation or abscess without bleeding Status: Acute Assessment and Plan: WBC up and still has free air on Xray this AM. Patient's symptoms are almost resolved however. Bowel function is slowly returning. Will continue NG decompression, IV antibiotics, and IV TPN currently. If abdominal X-ray is improved tomorrow, may consider SBFT. If he is showing any worsening signs, he may need more urgent surgical exploartion. (2) Small bowel obstruction: Code(s): K56.609 - Unspecified intestinal obstruction, unspecified as to partial versus complete obstruction Status: Acute (3) Protein-calorie malnutrition, moderate: Code(s): E44.0 - Moderate protein-calorie malnutrition Status: Acute Subjective Subjective Date/Time Seen: 12/29/19 15:06 Patient has had 2 small BM's and is passing flatus. NG came out this morning and follow up KUB showed worsening free air, but patient is actually having minimal pain. No fevers. Ambulating without much difficulty. Exam GI: Inspection: distended GI Palp: Yes Soft to palpation, No Tenderness to palpation present (GI), No Guarding due to palpation present (GI) and No Rebound tenderness present Percussion: Yes tympanic to percussion Auscultation: normal bowel sounds Objective Data Vital Signs Vital Signs: Vital Signs - 24 hr 12/28/19 22:00 12/29/19 06:00 12/29/19 07:45 Temperature 37.3 C 36.9 C Pulse Rate 79 76 76 Respiratory Rate 18 18 18 Blood Pressure 146/81 H 148/88 H Pulse Oximetry 96 97 97 Intake/Output Intake/Output: Intake & Output 12/26/19 12/27/19 12/28/19 12/29/19 23:59 23:59 23:59 23:59 Intake Total 2260 1340 2845 110 Output Total 860 1700 1800 1100 Balance 1400 -360 1045 -990 Meds/Results Medications: Active Medications Generic Name Dose Route Start Last Admin Trade Name Freq PRN Reason Stop Dose Admin Enoxaparin Sodium 40 mg 12/24/19 09:00 12/29/19 09:09 Lovenox SUB-Q 40 mg DAILY GHASSAN Administration Famotidine 20 mg 12/23/19 21:00 12/29/19 09:09 Pepcid Iv IV PUSH 20 mg Q12HR GHASSAN Administration Piperacillin/Tazobactam/Dextrose 3.375 gm in 50 mls @ 100 mls/hr 12/23/19 19:15 12/29/19 12:00 Zosyn 3.375 Gm/D5w 50ml Pm IVPB 100 mls/hr Q6HR GHASSAN Administration Gentamicin Sulfate 400 mg/ 110 mls @ 100 mls/hr 12/25/19 10:00 12/29/19 09:10 Dextrose IVPB 100 mls/hr Q24H GHASSAN Administration Dextrose 1,000 mls @ 50 mls/hr 12/27/19 08:21 Dextrose 10% IV CONT .Q20H PRN if PN is interrupted Multivitamins 5 ml/ Amino 2,005 mls @ 60 mls/hr 12/27/19 14:00 12/28/19 16:30 Acids/Electrolytes/Dextrose IV CONT 60 mls/hr .Q24H GHASSAN Administration Protocol Fat Emulsion Intravenous 250 mls @ 20.833 mls/hr 12/27/19 14:00 12/28/19 14:30 Lipids 20% IVPB Infused Q24H GHASSAN Infusion Acetaminophen 1,000 mg in 100 mls @ 400 mls/hr 12/29/19 15:04 Ofirmev 1,000 Mg Ivpb IVPB 12/30/19 15:05 Q6H PRN Pain Rated 1-3 Insulin Aspart 0 units 12/27/19 18:00 12/29/19 12:09 SUB-Q Not Given Q6HR [facility] Protocol Morphine Sulfate 3 mg 12/24/19 08:51 12/28/19 20:35 Morphine Sulfate Inj IV PUSH 3 mg Q2H PRN Administration Pain Rated 4-6 Morphine Sulfate 5 mg 12/24/19 08:51 12/27/19 22:00 Morphine Sulfate Inj IV PUSH 5 mg Q2H PRN Administration Pain Rated 7-10 Naloxone HCl 0.1 mg 12/23/19 10:02 Narcan IV PUSH Q2M PRN Opiate Reversal Ondansetron HCl 4 mg 12/23/19 05:19 12/27/19 09:11 Zofran Inj IV PUSH 4 mg Q4H PRN Adm
[2019-12-29 15:14] VITALS: BP 140/80; PULSE 72; RESP 20; TEMP 37.2; O2SAT 97
[2019-12-29] MEDS: FAT EMULSIONS IV 20% 250 ML 20.8 ML IVPB (16:00)
[2019-12-29 18:53] LABS: Glucose Point of Care 150 (65-105)
[2019-12-29 21:49] VITALS: BP 137/84; PULSE 85; RESP 16; TEMP 37.3; O2SAT 95
[2019-12-29] MEDS: ONDANSETRON INJ 4 MG/2 ML VIAL IV PUSH (22:04)
[2019-12-29] MEDS: MORPHINE SULFATE 2 MG/ML INJ 3 MG IV PUSH (22:04)
[2019-12-30 00:07] LABS: Glucose Point of Care 177 (65-105)
[2019-12-30 05:37] LABS: Hematocrit 41.4 % (42.0-52.0); Hemoglobin 13.9 g/dL (14.0-18.0); Mean Corpuscular HGB Conc 33.6 g/dl (32-36); Mean Corpuscular Volume 89.2 fl (80-100); Mean Platelet Volume 10.5 fl (7.4-10.4); Platelet Count Result 242 k/mm3 (150-375); Red Blood Count 4.64 M/mm3 (4.6-6.20); Red Cell Distribution Width 12.8 % (11.5-14.5); White Blood Count 16.8 K/mm3 (4.5-10.0)
[2019-12-30 05:38] LABS: Glucose Point of Care 170 (65-105)
[2019-12-30 05:59] LABS: Blood Urea Nitrogen 20 mg/dL (9-20); Calcium 7.9 mg/dL (8.4-10.2); Carbon Dioxide 28 mmol/L (22-30); Chloride 93 mmol/L (98-107); Estimated CRCL calculation 86 ml/min; Estimated Glomerular Filt Rate > 60; Glucose 155 mg/dL (75-110); Phosphorus 4.1 mg/dL (2.5-4.5); Potassium 4.1 mmol/L (3.4-5.0); Sodium 132 mmol/L (137-145)
[2019-12-30 06:00] VITALS: BP 119/72; PULSE 69; RESP 16; TEMP 37.1; O2SAT 96
[2019-12-30 07:34] VITALS: PULSE 69; RESP 16; O2SAT 96
[2019-12-30 09:14] LABS: Triglycerides 146 mg/dL (<150)
[2019-12-30] MEDS: GENTAMICIN SULFATE INJ 400 MG in DEXTROSE 5% 100 ML 100 MG IVPB (10:00)
--- NOTE | 2019-12-30 11:53 | PM.PNGS ---
Progress Note: A&P Assessment and Plan (1) Diverticulitis large intestine: Qualifiers: Diverticulitis bleeding: without bleeding Diverticulitis complication: with perforation and without abscess Qualified Code(s): K57.20 - Diverticulitis of large intestine with perforation and abscess without bleeding Code(s): K57.32 - Diverticulitis of large intestine without perforation or abscess without bleeding Status: Acute Assessment and Plan: Continue Zosyn and Gent NPO and NG decompression Not much improvement in distention and X-ray still shows dilated bowel. Eventual SBFT once distention improves Continue TPN (2) Small bowel obstruction: Code(s): K56.609 - Unspecified intestinal obstruction, unspecified as to partial versus complete obstruction Status: Acute (3) Protein-calorie malnutrition, moderate: Code(s): E44.0 - Moderate protein-calorie malnutrition Status: Acute Subjective Subjective Date/Time Seen: 12/30/19 11:53 1 BM this AM, not much flatus. Still minimal pain. Occasional spasms. No fevers. Exam GI: Inspection: distended GI Palp: Yes Soft to palpation, Yes Tenderness to palpation present (GI) (mild lower), No Guarding due to palpation present (GI) and No Rebound tenderness present Objective Data Vital Signs Vital Signs: Vital Signs - 24 hr 12/29/19 15:14 12/29/19 21:49 12/30/19 06:00 Temperature 37.2 C 37.3 C 37.1 C Pulse Rate 72 85 69 Respiratory Rate 20 16 16 Blood Pressure 140/80 137/84 119/72 Pulse Oximetry 97 95 96 12/30/19 07:34 Temperature Pulse Rate 69 Respiratory Rate 16 Blood Pressure Pulse Oximetry 96 Intake/Output Intake/Output: Intake & Output 12/27/19 12/28/19 12/29/19 12/30/19 23:59 23:59 23:59 23:59 Intake Total 1340 2845 2295 340 Output Total 1700 1800 1200 2009 Balance -360 5144 2523 -0939 Meds/Results Medications: Active Medications Generic Name Dose Route Start Last Admin Trade Name Freq PRN Reason Stop Dose Admin Enoxaparin Sodium 40 mg 12/24/19 09:00 12/29/19 09:09 Lovenox SUB-Q 40 mg DAILY GHASSAN Administration Famotidine 20 mg 12/23/19 21:00 12/29/19 20:12 Pepcid Iv IV PUSH 20 mg Q12HR GHASSAN Administration Piperacillin/Tazobactam/Dextrose 3.375 gm in 50 mls @ 100 mls/hr 12/23/19 19:15 12/30/19 05:23 Zosyn 3.375 Gm/D5w 50ml Pm IVPB 100 mls/hr Q6HR GHASSAN Administration Gentamicin Sulfate 400 mg/ 110 mls @ 100 mls/hr 12/25/19 10:00 12/29/19 10:00 Dextrose IVPB Infused Q24H GHASSAN Infusion Dextrose 1,000 mls @ 50 mls/hr 12/27/19 08:21 Dextrose 10% IV CONT .Q20H PRN if PN is interrupted Multivitamins 5 ml/ Amino 2,005 mls @ 60 mls/hr 12/27/19 14:00 12/29/19 16:30 Acids/Electrolytes/Dextrose IV CONT 60 mls/hr .Q24H GHASSAN Administration Protocol Fat Emulsion Intravenous 250 mls @ 20.833 mls/hr 12/27/19 14:00 12/30/19 04:02 Lipids 20% IVPB Infused Q24H GHASSAN Infusion Acetaminophen 1,000 mg in 100 mls @ 400 mls/hr 12/29/19 15:04 Ofirmev 1,000 Mg Ivpb IVPB 12/30/19 15:05 Q6H PRN Pain Rated 1-3 Insulin Aspart 0 units 12/27/19 18:00 12/30/19 10:20 SUB-Q Not Given Q6HR [facility] Protocol Morphine Sulfate 3 mg 12/24/19 08:51 12/29/19 22:04 Morphine Sulfate Inj IV PUSH 3 mg Q2H PRN Administration Pain Rated 4-6 Morphine Sulfate 5 mg 12/24/19 08:51 12/27/19 22:00 Morphine Sulfate Inj IV PUSH 5 mg Q2H PRN Administration Pain Rated 7-10 Naloxone HCl 0.1 mg 12/23/19 10:02 Narcan IV PUSH Q2M PRN Opiate Reversal Ondansetron HCl 4 mg 12/23/19 05:19 12/29/19 22:04 Zofran Inj IV PUSH 4 mg Q4H PRN Administration Nausea Trazodone HCl 50 mg 12/26/19 07:33 Desyrel PO HS PRN Insomnia Radiology Results: ITS Impressions Abdomen/Pelvis CT 12/26/19 08:07 IMPRESSION: Perforated sigmoid diverticulitis, diverticular abscess, prom
[2019-12-30 12:00] LABS: Glucose Point of Care 146 (65-105)
[2019-12-30 12:01] LABS: Glucose Point of Care > 500 (65-105)
[2019-12-30] MEDS: FAT EMULSIONS IV 20% 250 ML 20.8 ML IVPB (14:00)
[2019-12-30] MEDS: ONDANSETRON INJ 4 MG/2 ML VIAL IV PUSH (14:04)
[2019-12-30] MEDS: MORPHINE SULFATE 2 MG/ML INJ 3 MG IV PUSH (14:05)
[2019-12-30 14:25] VITALS: BP 124/74; PULSE 75; RESP 18; TEMP 37.1; O2SAT 96
[2019-12-30] MEDS: FAMOTIDINE 20 MG/2 ML VIAL IV PUSH ×2 (17:59→20:08)
[2019-12-30] MEDS: ENOXAPARIN 40 MG/0.4 ML SYRINGE SUB-Q (17:59)
[2019-12-30 18:21] LABS: Glucose Point of Care 138 (65-105)
[2019-12-30 21:50] VITALS: BP 132/76; PULSE 72; RESP 18; TEMP 36.9; O2SAT 97
[2019-12-31] MEDS: MORPHINE SULFATE 2 MG/ML INJ 3 MG IV PUSH (00:18)
[2019-12-31 00:27] LABS: Glucose Point of Care 163 (65-105)
[2019-12-31 06:00] VITALS: BP 132/71; PULSE 74; RESP 20; TEMP 36.8; O2SAT 95
[2019-12-31 06:14] LABS: Hematocrit 40.6 % (42.0-52.0); Hemoglobin 13.8 g/dL (14.0-18.0); Mean Corpuscular Hemoglobin 30.5 pg (26-34); Mean Corpuscular Volume 89.8 fl (80-100); Mean Platelet Volume 10.5 fl (7.4-10.4); Platelet Count Result 286 k/mm3 (150-375); Red Blood Count 4.52 M/mm3 (4.6-6.20); Red Cell Distribution Width 12.8 % (11.5-14.5); White Blood Count 14.6 K/mm3 (4.5-10.0)
[2019-12-31 06:26] LABS: INR 1.2; Prothrombin Time 14.6 Seconds (11.1-14.7)
[2019-12-31 06:27] LABS: Partial Thromboplastin Time 27.3 SECONDS (22.3-36.8)
[2019-12-31 06:31] LABS: Alanine Aminotransferase 34 U/L (4-50); Albumin Level 3.2 g/dL (3.5-5.1); Alkaline Phosphatase 49 U/L (38-126); Aspartate Amino Transferase 31 U/L (17-59); Bilirubin,Total 0.6 mg/dL (0.2-1.3); Blood Urea Nitrogen 21 mg/dL (9-20); Calcium 7.7 mg/dL (8.4-10.2); Carbon Dioxide 27 mmol/L (22-30); Chloride 92 mmol/L (98-107); Estimated CRCL calculation 76 ml/min; Estimated Glomerular Filt Rate > 60; Glucose 159 mg/dL (75-110); Magnesium 2.3 mg/dL (1.6-2.3); Phosphorus 4.1 mg/dL (2.5-4.5); Potassium 3.9 mmol/L (3.4-5.0); Sodium 130 mmol/L (137-145)
[2019-12-31 06:35] LABS: Transferrin 164 mg/dL (206-381)
[2019-12-31 06:50] LABS: Glucose Point of Care 151 (65-105)
--- NOTE | 2019-12-31 07:34 | PM.PNGS ---
Progress Note: A&P Assessment and Plan (1) Small bowel obstruction: Code(s): K56.609 - Unspecified intestinal obstruction, unspecified as to partial versus complete obstruction Status: Acute Assessment and Plan: Had bowel movement yesterday. Still somewhat distended with hypoactive bowel sounds. Plain films yesterday still suggestive of small-bowel obstruction. Will get Gastrografin upper GI small-bowel follow-through today. If does not show passage through into the colon, will probably need to go ahead with surgery. Discussed this with the patient and his . (2) Diverticulitis large intestine: Qualifiers: Diverticulitis bleeding: without bleeding Diverticulitis complication: with perforation and without abscess Qualified Code(s): K57.20 - Diverticulitis of large intestine with perforation and abscess without bleeding Code(s): K57.32 - Diverticulitis of large intestine without perforation or abscess without bleeding Status: Acute Assessment and Plan: Now complicated by small-bowel obstruction. May need to proceed with surgery. This may include descending colostomy and I have discussed this with the patient and his . Would involve sigmoidectomy as well as adhesiolysis for small bowel obstruction. (3) Sacroiliitis: Code(s): M46.1 - Sacroiliitis, not elsewhere classified Status: Chronic Assessment and Plan: Right hip pain is currently patient's biggest complaint. (4) Protein-calorie malnutrition, moderate: Code(s): E44.0 - Moderate protein-calorie malnutrition Status: Acute Assessment and Plan: Continue TPN as patient still unable to eat. Sodium is low. Will start IV normal saline at 60 cc an hour in addition to TPN. Subjective Subjective Date/Time Seen: 12/31/19 07:34 Patient had a bowel movement yesterday. Little or no lower abdominal pain at this point. Mostly complains of pain at his right hip likely due to sacral ileitis diagnosed 2 days prior to the onset of his acute diverticulitis. No bowel movements or flat us since yesterday. Review of Systems Review of Systems: All systems reviewed & are unremarkable except as noted in HPI and below Constitutional: Constitutional: Denies headache(s) ENT: Denies headache(s) Cardiovascular: Cardiovascular: Denies chest pain and Denies dyspnea Respiratory: Respiratory: Denies cough and Denies dyspnea Gastrointestinal: Gastrointestinal: Reports as per HPI Neurologic: Denies confusion and Denies headache(s) Psychiatric: Psychiatric: Denies confusion Exam Const: General: comfortable and no acute distress; No confusion Orientation/consciousness: patient oriented x3 and No confusion Resp: Effort & Inspection: normal respiratory effort Auscultation: clear to auscultation bilaterally Cardio: Rate: regular rate Rhythm: regular rhythm GI: Inspection: distended and obesity GI Palp: Yes Soft to palpation, No Guarding due to palpation present (GI) and No Rebound tenderness present Auscultation: Hypoactive bowel sounds present Neuro: General: patient oriented x3, no focal motor deficits and No confusion Extrem: General: no calf tenderness and no edema Psych: Affect: normal affect Insight: Good insight present (Psych) Judgement: Good judgement present (Psych) Objective Data Vital Signs Vital Signs: Vital Signs - 24 hr 12/30/19 14:25 12/30/19 21:50 Temperature 37.1 C 36.9 C Pulse Rate 75 72 Respiratory Rate 18 18 Blood Pressure 124/74 132/76 Pulse Oximetry 96 97 Intake/Output Intake/Output: Intake & Output 12/28/19 12/29/19 12/30/19 12/31/19 23:59 23:59 23:59 23:59 Intake Total 2845 2295 2655 50 Output Total 1800 1200 2610 1400 Balance 1045 1095 45 -1350 Meds/Results Medications: Active Medications Generic Name Dose Route Start Last Admin Trade Name Freq PRN Reason Stop Dose Admin Enoxaparin Sodium 40 mg 12/24/19 09:00 12/30/19 17:5
[2019-12-31] MEDS: GENTAMICIN SULFATE INJ 400 MG in DEXTROSE 5% 100 ML 100 MG IVPB (10:07)
[2019-12-31] MEDS: FAMOTIDINE 20 MG/2 ML VIAL IV PUSH ×2 (10:13→20:42)
[2019-12-31] MEDS: ENOXAPARIN 40 MG/0.4 ML SYRINGE SUB-Q (10:15)
[2019-12-31 11:23] LABS: Glucose Point of Care 171 (65-105)
[2019-12-31] MEDS: SODIUM CHLORIDE 0.9% IV 1,000 ML 50 ML IV CONT (11:52)
[2019-12-31 14:25] VITALS: BP 128/73; PULSE 75; RESP 16; TEMP 37.1; O2SAT 97
[2019-12-31] MEDS: FAT EMULSIONS IV 20% 250 ML 20.8 ML IVPB (14:50)
[2019-12-31 18:19] LABS: Glucose Point of Care 157 (65-105)
[2019-12-31] MEDS: ONDANSETRON INJ 4 MG/2 ML VIAL IV PUSH (20:44)
[2019-12-31 21:58] VITALS: BP 118/75; PULSE 78; RESP 16; TEMP 36.8; O2SAT 95
[2019-12-31 22:02] LABS: Gentamicin Random 1.6 ug/mL (5.0-12.0)
[2019-12-31 23:44] LABS: Glucose Point of Care 160 (65-105)
[2020-01-01 05:18] LABS: Glucose Point of Care 151 (65-105)
[2020-01-01 05:18] LABS: Hematocrit 39.9 % (42.0-52.0); Hemoglobin 13.2 g/dL (14.0-18.0); Mean Corpuscular HGB Conc 33.1 g/dl (32-36); Mean Corpuscular Hemoglobin 30.3 pg (26-34); Mean Corpuscular Volume 91.7 fl (80-100); Mean Platelet Volume 10.9 fl (7.4-10.4); Platelet Count Result 281 k/mm3 (150-375); Red Blood Count 4.35 M/mm3 (4.6-6.20); Red Cell Distribution Width 12.8 % (11.5-14.5); White Blood Count 14.2 K/mm3 (4.5-10.0)
[2020-01-01 05:32] LABS: Blood Urea Nitrogen 20 mg/dL (9-20); Calcium 8.1 mg/dL (8.4-10.2); Carbon Dioxide 29 mmol/L (22-30); Chloride 95 mmol/L (98-107); Estimated CRCL calculation 76 ml/min; Estimated Glomerular Filt Rate > 60; Glucose 161 mg/dL (75-110); Phosphorus 3.7 mg/dL (2.5-4.5); Potassium 3.6 mmol/L (3.4-5.0); Sodium 134 mmol/L (137-145); Triglycerides 125 mg/dL (<150)
[2020-01-01 05:57] VITALS: BP 123/73; PULSE 70; RESP 16; TEMP 36.7; O2SAT 96
[2020-01-01 07:58] VITALS: PULSE 70; RESP 16; O2SAT 96
[2020-01-01] MEDS: FAMOTIDINE 20 MG TABLET PO ×2 (09:45→20:14)
[2020-01-01] MEDS: ENOXAPARIN 40 MG/0.4 ML SYRINGE SUB-Q (09:45)
[2020-01-01] MEDS: GENTAMICIN SULFATE INJ 400 MG in DEXTROSE 5% 100 ML 100 MG IVPB (09:46)
--- NOTE | 2020-01-01 09:51 | PM.PNGS ---
Progress Note: A&P Assessment and Plan (1) Small bowel obstruction: Code(s): K56.609 - Unspecified intestinal obstruction, unspecified as to partial versus complete obstruction Status: Acute Assessment and Plan: Gastrografin SBFT showed contrast moving through to the colon in 90 minutes. Still some dilated small bowel with slightly slowed transit, suggestive of an ileus. Abdominal x-ray this morning showed contrast throughout the colon. Patient clinically improving and bowel function returning. Will remove NG today and start clear liquids. Will leave the Clinimix going until tolerating a substantial diet. Encouraged patient to walk the halls. (2) Diverticulitis large intestine: Qualifiers: Diverticulitis bleeding: without bleeding Diverticulitis complication: with perforation and without abscess Qualified Code(s): K57.20 - Diverticulitis of large intestine with perforation and abscess without bleeding Code(s): K57.32 - Diverticulitis of large intestine without perforation or abscess without bleeding Status: Acute Assessment and Plan: Continue IV antibiotics Consulted the dietitian to educate the patient on a low fiber vs. high fiber diet. He will slowly be advanced to a low fiber diet as progressing towards discharge. (3) Sacroiliitis: Code(s): M46.1 - Sacroiliitis, not elsewhere classified Status: Chronic (4) Protein-calorie malnutrition, moderate: Code(s): E44.0 - Moderate protein-calorie malnutrition Status: Acute Assessment and Plan: Sodium 134, improved today with IV fluids given yesterday. Continue TPN until tolerating a substantial diet. Additional Plan Discussed plan of care with Dr. Muñoz. Subjective Subjective Date/Time Seen: 01/01/20 09:51 Patient reports: no new complaints, feels better, pain is less, flatus and bowel movement Interval history: Patient seen and examined. Reports feeling better today with less pain overall. He reports some very mild abdominal pain still in the LLQ rating it at a 1/10. Denies nausea or vomiting. Has had multiple loose bowel movements since yesterday and into this morning. Reports bloating has improved. Review of Systems Review of Systems: All systems reviewed & are unremarkable except as noted in HPI and below Exam Const: General: comfortable, no acute distress, alert and awake Resp: Auscultation: clear to auscultation bilaterally Cardio: Rate: regular rate Rhythm: regular rhythm GI: Inspection: obesity and other (mildly distended) GI Palp: Yes abdominal tenderness (mid to left lower quadrant), Yes Soft to palpation, No Guarding due to palpation present (GI), No Rigid due to palpation and No Rebound tenderness present Auscultation: Hypoactive bowel sounds present Skin: General skin exam: normal color Neuro: General: patient oriented x3 and no focal motor deficits Extrem: General: no calf tenderness and no edema Psych: Mental Status: mental status grossly normal Attitude: cooperative Thought process: Normal thought process present Insight: Good insight present (Psych) Objective Data Vital Signs Vital Signs: Vital Signs - 24 hr 12/31/19 14:25 12/31/19 21:58 01/01/20 05:57 Temperature 37.1 C 36.8 C 36.7 C Pulse Rate 75 78 70 Respiratory Rate 16 16 16 Blood Pressure 128/73 118/75 123/73 Pulse Oximetry 97 95 96 01/01/20 07:58 Temperature Pulse Rate 70 Respiratory Rate 16 Blood Pressure Pulse Oximetry 96 Intake/Output Intake/Output: Intake & Output 12/29/19 12/30/19 12/31/19 01/01/20 23:59 23:59 23:59 23:59 Intake Total 2295 2655 2655 320 Output Total 1200 2610 1850 1120 Balance 1095 45 805 -800 Meds/Results Medications: Active Medications Generic Name Dose Route Start Last Admin Trade Name Freq PRN Reason Stop Dose Admin Enoxaparin Sodium 40 mg 12/24/19 09:00 01/01/20 09:45 Lovenox SUB-Q 40 mg DAILY GHASSAN Administration Famotidine 20
[2020-01-01 12:34] LABS: Glucose Point of Care 161 (65-105)
--- NOTE | 2020-01-01 14:01 | PCDIET ---
Nutrition Follow-Up Complete: Altered GI function related to diverticulitis as evidenced by N/V and abdominal pain. Pt will tolerate TPN formula and advancement to goal rate Goal:Goal met. Continue goal. Pt current nutrition is clear liquids + TPN at 60ml/hr Nutrition recommendation: agree Last recorded weight is 88.5 kg (down from 100kg on admit) Bowel Motility: BM today, normal BMs Labs Reviewed: Triglycerides 125, Na 134, WBC 14.2 Meds Noted:Zofran, Narcan, Lovenox Additional Notes: NG removed. Plans to continue TPN at 60ml/hr until diet advances and is adequate. Pt currently receiving 72g protein and 1522 kcals, meeting 96% of protein needs and only 73%of kcal needs. PO intake of clears at 25% today. If diet cannot to advance to solid foods with 50%+ intake, I would recommend increasing TPN to 80ml/hr to better meet the pt's nutrition needs and halt further wt loss. Diet education provided today on a low to high fiber diet. Handouts and contact info provided. Details under nutritional teaching. We will continue to monitor labs, wt, po intake every T/F.
[2020-01-01 14:30] VITALS: BP 149/75; PULSE 71; RESP 16; TEMP 36.8; O2SAT 99
[2020-01-01] MEDS: FAT EMULSIONS IV 20% 250 ML 20.8 ML IVPB (15:59)
[2020-01-01 18:11] LABS: Glucose Point of Care 132 (65-105)
[2020-01-01 21:48] VITALS: BP 127/75; PULSE 72; RESP 16; TEMP 37.2; O2SAT 97
[2020-01-01] MEDS: TRAZODONE HCL 50 MG TABLET PO (21:50)
[2020-01-02 00:35] LABS: Glucose Point of Care 165 (65-105)
[2020-01-02 05:25] LABS: Hematocrit 40.5 % (42.0-52.0); Hemoglobin 13.2 g/dL (14.0-18.0); Mean Corpuscular HGB Conc 32.6 g/dl (32-36); Mean Platelet Volume 11.1 fl (7.4-10.4); Platelet Count Result 280 k/mm3 (150-375); Red Cell Distribution Width 12.8 % (11.5-14.5); White Blood Count 12.2 K/mm3 (4.5-10.0)
[2020-01-02 05:37] LABS: Glucose Point of Care 150 (65-105)
[2020-01-02 05:41] LABS: Blood Urea Nitrogen 17 mg/dL (9-20); Calcium 8.1 mg/dL (8.4-10.2); Carbon Dioxide 27 mmol/L (22-30); Chloride 95 mmol/L (98-107); Estimated CRCL calculation 84 ml/min; Estimated Glomerular Filt Rate > 60; Glucose 194 mg/dL (75-110); Phosphorus 3.7 mg/dL (2.5-4.5); Potassium 4.1 mmol/L (3.4-5.0); Sodium 134 mmol/L (137-145)
[2020-01-02 06:00] VITALS: BP 108/76; PULSE 70; RESP 16; TEMP 36.4; O2SAT 97
[2020-01-02 08:00] VITALS: PULSE 70; RESP 16; O2SAT 97
[2020-01-02] MEDS: FAMOTIDINE 20 MG TABLET PO ×2 (10:39→20:16)
[2020-01-02] MEDS: ENOXAPARIN 40 MG/0.4 ML SYRINGE SUB-Q (10:39)
[2020-01-02] MEDS: GENTAMICIN SULFATE INJ 400 MG in DEXTROSE 5% 100 ML 100 MG IVPB (10:40)
[2020-01-02 11:16] LABS: Glucose Point of Care 172 (65-105)
[2020-01-02 14:00] VITALS: BP 112/78; PULSE 70; RESP 18; TEMP 36.7; O2SAT 97
--- NOTE | 2020-01-02 14:29 | PM.PNGS ---
Progress Note: A&P Assessment and Plan (1) Diverticulitis large intestine: Qualifiers: Diverticulitis bleeding: without bleeding Diverticulitis complication: with perforation and without abscess Qualified Code(s): K57.20 - Diverticulitis of large intestine with perforation and abscess without bleeding Code(s): K57.32 - Diverticulitis of large intestine without perforation or abscess without bleeding Status: Acute Assessment and Plan: Patient continues to improve. WBC trending down to 12,000 today and he remains afebrile. Continue IV antibiotics Advanced to a full liquid diet today. Will stop TPN (Clinimix/lipids) later today if he is tolerating the full liquids. (2) Small bowel obstruction: Code(s): K56.609 - Unspecified intestinal obstruction, unspecified as to partial versus complete obstruction Status: Resolved Assessment and Plan: Gastrografin SBFT showed contrast moving through to the colon in 90 minutes. Still some dilated small bowel with slightly slowed transit, suggestive of an ileus. Abdominal x-ray this morning showed contrast throughout the colon. Patient continues to clinically improve and bowels continue to move. Encouraged patient to walk the halls. (3) Sacroiliitis: Code(s): M46.1 - Sacroiliitis, not elsewhere classified Status: Chronic (4) Protein-calorie malnutrition, moderate: Code(s): E44.0 - Moderate protein-calorie malnutrition Status: Acute Additional Plan Also added physical therapy today to help the patient work on exercises for his right foot to continue PT. Discussed plan of care with Dr. Partida today. Subjective Subjective Date/Time Seen: 01/02/20 12:29 Patient reports: no new complaints, feels better, pain is less, tolerating liquids well, flatus and bowel movement Interval history: Patient seen and examined. Reports feeling well today without any abdominal pain at rest. He reports still some mild achy pain or soreness in the left lower quadrant when urinating. Tolerating clear liquids. No nausea or vomiting. Reports bloating continues to improve. Reports two bowel movements already today. He also reports recently having right foot surgery and was undergoing physical therapy post-op. He feels his foot is getting stiff. No other complaints at this time. Review of Systems Review of Systems: All systems reviewed & are unremarkable except as noted in HPI and below Exam Const: General: no acute distress, alert and awake Resp: Auscultation: clear to auscultation bilaterally Cardio: Rate: regular rate Rhythm: regular rhythm GI: Inspection: obesity and other (mildly distended) Skin: General skin exam: normal color Neuro: General: patient oriented x3 and no focal motor deficits Extrem: General: no clubbing, cyanosis or edema, no calf tenderness and no edema Psych: Mental Status: mental status grossly normal Attitude: cooperative Thought process: Normal thought process present Insight: Good insight present (Psych) Objective Data Vital Signs Vital Signs: Vital Signs - 24 hr 01/01/20 14:30 01/01/20 21:48 01/02/20 06:00 Temperature 36.8 C 37.2 C 36.4 C Pulse Rate 71 72 70 Respiratory Rate 16 16 16 Blood Pressure 149/75 H 127/75 108/76 Pulse Oximetry 99 97 97 01/02/20 08:00 Temperature Pulse Rate 70 Respiratory Rate 16 Blood Pressure Pulse Oximetry 97 Intake/Output Intake/Output: Intake & Output 12/30/19 12/31/19 01/01/20 01/02/20 23:59 23:59 23:59 23:59 Intake Total 2655 2655 3195 820 Output Total 2610 1850 1570 950 Balance 45 805 1625 -130 Meds/Results Medications: Active Medications Generic Name Dose Route Start Last Admin Trade Name Freq PRN Reason Stop Dose Admin Enoxaparin Sodium 40 mg 12/24/19 09:00 01/02/20 10:39 Lovenox SUB-Q 40 mg DAILY GHASSAN Administration Famotidine 20 mg 01/01/20 09:00 01/02/20 10:39 Pepcid PO 20 mg Q12HR GHASSAN Administration
--- NOTE | 2020-01-02 16:06 | PCCCNOTE ---
On 01/02/20, the student, Velma Vanegas, provided care and completed [facility] documentation on this patient. I have reviewed the student's documentation and agree with the findings.
[2020-01-02] MEDS: FAT EMULSIONS IV 20% 250 ML 20.8 ML IVPB (16:30)
[2020-01-02 19:14] LABS: Glucose Point of Care 176 (65-105)
[2020-01-02] MEDS: TRAZODONE HCL 50 MG TABLET PO (21:59)
[2020-01-02 22:00] VITALS: BP 120/70; PULSE 71; RESP 16; TEMP 36.7; O2SAT 97
[2020-01-02 23:55] LABS: Glucose Point of Care 187 (65-105)
[2020-01-03 05:33] LABS: Glucose Point of Care 198 (65-105)
[2020-01-03 05:36] LABS: Hematocrit 43.2 % (42.0-52.0); Mean Corpuscular HGB Conc 32.4 g/dl (32-36); Mean Corpuscular Hemoglobin 29.8 pg (26-34); Mean Corpuscular Volume 91.9 fl (80-100); Mean Platelet Volume 11.1 fl (7.4-10.4); Platelet Count Result 373 k/mm3 (150-375); Red Cell Distribution Width 12.8 % (11.5-14.5); White Blood Count 12.2 K/mm3 (4.5-10.0)
[2020-01-03 05:55] LABS: Alanine Aminotransferase 49 U/L (4-50); Albumin Level 3.8 g/dL (3.5-5.1); Alkaline Phosphatase 77 U/L (38-126); Aspartate Amino Transferase 29 U/L (17-59); Bilirubin,Total 0.4 mg/dL (0.2-1.3); Blood Urea Nitrogen 19 mg/dL (9-20); Calcium 8.7 mg/dL (8.4-10.2); Carbon Dioxide 26 mmol/L (22-30); Chloride 93 mmol/L (98-107); Estimated CRCL calculation 67 ml/min; Estimated Glomerular Filt Rate > 60; Glucose 172 mg/dL (75-110); Magnesium 2.4 mg/dL (1.6-2.3); Phosphorus 3.8 mg/dL (2.5-4.5); Potassium 4.1 mmol/L (3.4-5.0); Sodium 134 mmol/L (137-145)
[2020-01-03 06:00] VITALS: BP 131/72; PULSE 72; RESP 16; TEMP 36.6; O2SAT 97
[2020-01-03 06:02] LABS: Prealbumin 27.2 mg/dL (17.6-36.0)
[2020-01-03] MEDS: FAMOTIDINE 20 MG TABLET PO ×2 (08:15→21:11)
[2020-01-03] MEDS: ENOXAPARIN 40 MG/0.4 ML SYRINGE SUB-Q (08:15)
[2020-01-03 08:47] LABS: Triglycerides 101 mg/dL (<150)
[2020-01-03] MEDS: GENTAMICIN SULFATE INJ 400 MG in DEXTROSE 5% 100 ML 100 MG IVPB (09:45)
--- NOTE | 2020-01-03 09:47 | PM.PNGS ---
Progress Note: A&P Assessment and Plan (1) Diverticulitis large intestine: Onset Date: 12/23/19 Qualifiers: Diverticulitis bleeding: without bleeding Diverticulitis complication: with perforation and without abscess Qualified Code(s): K57.20 - Diverticulitis of large intestine with perforation and abscess without bleeding Code(s): K57.32 - Diverticulitis of large intestine without perforation or abscess without bleeding Status: Acute Assessment and Plan: Patient progressing well with conservative management of this problem. Diet is slowly being advanced. Will stop TPN after current bag. Will check on him this afternoon. If doing well without fever will stop IV antibiotics in with the next dose and switch to oral antibiotics to complete 14 days of treatment. (2) Elevated random blood glucose level: Onset Date: Unknown Code(s): R73.09 - Other abnormal glucose Status: Acute (3) Mixed hyperlipidemia: Onset Date: Unknown Code(s): E78.2 - Mixed hyperlipidemia Status: Acute Additional Plan Will begin making discharge plans. Patient being evaluated by PT today and will resume outpatient PT once he is discharged. Plan to complete 14 days of antibiotics Plan to have patient stay on a low-fiber diet until he sees Dr. Muñoz as an outpatient in 2 weeks. May be able to remove PICC line prior to discharge. Time Spent With Patient Time with patient: 15 - 25 minutes Subjective Subjective Date/Time Seen: 01/03/20 09:47 Patient lying in bed when I entered the room. patient states he had about 4 loose stools over the last 24 hours. Positive flatus. Tolerating about half the amount of full liquids he gets brought on a tray. No nausea. Yesterday afternoon after lunch she had some bloating of the abdomen but otherwise states today he has 0 pain. Review of Systems Constitutional: Constitutional: Reports no additional constitutional complaints ENT: Reports other (Mucous Membranes moist.) Cardiovascular: Cardiovascular: Denies dyspnea Respiratory: Respiratory: Denies pain on inspiration and Denies dyspnea Gastrointestinal: Gastrointestinal: Reports as per HPI and Reports no additional gastrointestinal complaints Musculoskeletal: Musculoskeletal: Reports other (No calf swelling or edema) Integumentary/Breasts: Skin/Breast: Reports system reviewed and no additional complaints, except as docu Exam Const: General: cooperative, no acute distress, alert and awake Orientation/consciousness: patient oriented x3 HENMT: Mouth: Yes moist mucous membranes Neck: Neck: normal visual inspection Chest: Chest palpation & inspection: normal inspection of the chest Resp: Effort & Inspection: normal respiratory effort Auscultation: clear to auscultation bilaterally Cardio: Jugular venous distension: no JVD Rate: regular rate Rhythm: regular rhythm GI: Inspection: no scars and no visible herniation GI Palp: No Tenderness to palpation present (GI) Percussion: Yes normal to percussion Auscultation: normal bowel sounds Rectal Exam: deferred Neuro: General: patient oriented x3 and moves all extremities Speech: normal speech Extrem: General: normal exam except as noted Psych: Mental Status: mental status grossly normal Speech and movement: Normal speech and movement present Affect: normal affect Thought content: Yes Normal thought content present Objective Data Vital Signs Vital Signs: Vital Signs - 24 hr 01/02/20 14:00 01/02/20 22:00 01/03/20 06:00 Temperature 36.7 C 36.7 C 36.6 C Pulse Rate 70 71 72 Respiratory Rate 18 16 16 Blood Pressure 112/78 120/70 131/72 Pulse Oximetry 97 97 97 Intake/Output Intake/Output: Intake & Output 12/31/19 01/01/20 01/02/20 01/03/20 23:59 23:59 23:59 23:59 Intake Total 2655 3195 3660 660 Output Total 1850 1570 1550 1000 Balance 805 1625 2110 -340 Meds/Results Medications: Active Medications Generic Name
[2020-01-03 12:25] LABS: Glucose Point of Care 187 (65-105)
[2020-01-03 14:00] VITALS: BP 139/81; PULSE 82; RESP 16; TEMP 36.7; O2SAT 98
[2020-01-03 15:16] LABS: Add Urine Microscopic? YES; Appearance Urine Clear (Clear); Bilirubin Urine Negative (Negative); Blood Urine Negative (Negative); Color Urine Yellow (Yellow); Glucose Urine UA 3+ mg/dL (Negative); Ketones Urine Negative (Negative); Leukocyte Esterase Ur Negative LEU/UL (NEGATIVE); Mucus Urine Rare /lpf; Nitrate Urine Negative (Negative); Protein Urine 1+ mg/dL (Negative); RBC Urine 0-2 /hpf (0-2); Specific Grav Ur 1.016 (1.001-1.035); Urobilinogen Urine Negative mg/dL (<2.0); WBC Urine 0-3 /hpf (0-3)
[2020-01-03 20:00] VITALS: PULSE 81; RESP 16; O2SAT 97
[2020-01-03] MEDS: metroNIDAZOLE 250 MG TABLET 500 MG PO (21:11)
[2020-01-03 22:00] VITALS: BP 114/78; PULSE 81; RESP 16; TEMP 36.8; O2SAT 97
[2020-01-04 06:00] VITALS: BP 125/77; PULSE 81; RESP 16; TEMP 37.1; O2SAT 97
[2020-01-04] MEDS: metroNIDAZOLE 250 MG TABLET 500 MG PO ×3 (06:25→21:10)
[2020-01-04 06:51] LABS: Blood Urea Nitrogen 24 mg/dL (9-20); Calcium 8.8 mg/dL (8.4-10.2); Carbon Dioxide 27 mmol/L (22-30); Chloride 91 mmol/L (98-107); Estimated CRCL calculation 66 ml/min; Estimated Glomerular Filt Rate > 60; Glucose 122 mg/dL (75-110); Potassium 4.5 mmol/L (3.4-5.0); Sodium 132 mmol/L (137-145)
[2020-01-04 07:26] LABS: Hematocrit 41.9 % (42.0-52.0); Mean Corpuscular HGB Conc 33.4 g/dl (32-36); Mean Corpuscular Hemoglobin 30.2 pg (26-34); Mean Corpuscular Volume 90.3 fl (80-100); Mean Platelet Volume 11.2 fl (7.4-10.4); Platelet Count Result 422 k/mm3 (150-375); Red Blood Count 4.64 M/mm3 (4.6-6.20); Red Cell Distribution Width 12.6 % (11.5-14.5); White Blood Count 18.2 K/mm3 (4.5-10.0)
[2020-01-04] MEDS: ENOXAPARIN 40 MG/0.4 ML SYRINGE SUB-Q (09:07)
[2020-01-04] MEDS: FAMOTIDINE 20 MG TABLET PO ×2 (09:07→21:11)
[2020-01-04 14:00] VITALS: BP 125/74; PULSE 77; RESP 16; TEMP 36.6; O2SAT 99
--- NOTE | 2020-01-04 14:56 | PCNFU ---
Nutrition Follow-Up Complete: Altered GI function related to diverticulitis as evidenced by N/V and abdominal pain. Pt will tolerate TPN formula and advancement to goal rate Goal:goal met. No new goal. Pt current nutrition is Soft and Bite Sized, Level 6/Low fiber. Nutrition recommendation:Agree Last recorded weight is 85.6 kg. Bowel Motility:+BM Labs Reviewed:Na 132,Glu 122 Meds Noted: Flagyl, Lovenox Additional Notes: Patient is tolerating diet, intake reported 50-75% of meals. TPN has been discontinue. Patient has been educated on Low Fiber diet. NO further nutrition Interventions needed at this time. Monitoring: Will monitor every 7 days for length of stay screening.
--- NOTE | 2020-01-04 17:55 | PM.PNGS ---
Progress Note: A&P Assessment and Plan (1) Diverticulitis large intestine: Onset Date: 12/23/19 Qualifiers: Diverticulitis bleeding: without bleeding Diverticulitis complication: with perforation and without abscess Qualified Code(s): K57.20 - Diverticulitis of large intestine with perforation and abscess without bleeding Code(s): K57.32 - Diverticulitis of large intestine without perforation or abscess without bleeding Status: Acute Assessment and Plan: Patient progressing well with conservative management of this problem. Diet is slowly being advanced. We stopped TPN yesterday. We also stopprd IV antibiotics yesterday and switched to oral antibiotics to complete 14 days of treatment. unfortunately he has had a mild setback in that he has some bloating minor pain and his white count went back up to 18,000 today. Therefore, have discussed with him and his watching for another day on oral antibiotics and repeating the CBC in the morning. (2) Elevated random blood glucose level: Onset Date: Unknown Code(s): R73.09 - Other abnormal glucose Status: Acute (3) Mixed hyperlipidemia: Onset Date: Unknown Code(s): E78.2 - Mixed hyperlipidemia Status: Acute Additional Plan Will begin making discharge plans. Patient was evaluated by PT yesterday and will resume outpatient PT once he is discharged. Plan to complete 14 days of antibiotics Plan to have patient stay on a low-fiber diet until he sees Dr. Muñoz as an outpatient in 2 weeks. May be able to remove PICC line prior to discharge. Subjective Subjective Date/Time Seen: 01/04/20 0 900 Patient reports: still having pain ( mild intermittent across the mid abdomen) and afebrile Interval history: patient moved up to a low residue diet last evening. After he had some of this he began having a little bit of bloating again and some mild pain. He had 4 bowel movements in the last 24 hours. He is passing gas. He is walking in the halls. Review of Systems Review of Systems: All systems reviewed & are unremarkable except as noted in HPI and below Constitutional: Constitutional: Reports no additional constitutional complaints and Denies headache(s) ENT: Denies headache(s) and Reports other (Mucous Membranes moist.) Cardiovascular: Cardiovascular: Denies chest pain and Denies dyspnea Respiratory: Respiratory: Denies cough, Denies pain on inspiration and Denies dyspnea Gastrointestinal: Gastrointestinal: Reports as per HPI and Reports no additional gastrointestinal complaints Musculoskeletal: Musculoskeletal: Reports other (No calf swelling or edema) Integumentary/Breasts: Skin/Breast: Reports system reviewed and no additional complaints, except as docu Neurologic: Denies confusion and Denies headache(s) Psychiatric: Psychiatric: Denies confusion Exam Const: General: cooperative, no acute distress, alert and awake Orientation/consciousness: patient oriented x3 HENMT: Mouth: Yes moist mucous membranes Neck: Neck: normal visual inspection Chest: Chest palpation & inspection: normal inspection of the chest Resp: Effort & Inspection: normal respiratory effort Auscultation: clear to auscultation bilaterally Cardio: Jugular venous distension: no JVD Rate: regular rate Rhythm: regular rhythm GI: Inspection: obesity GI Palp: Yes Soft to palpation and No Guarding due to palpation present (GI) Auscultation: normal bowel sounds Rectal Exam: deferred Neuro: General: patient oriented x3 and moves all extremities Speech: normal speech Extrem: General: normal exam except as noted Psych: Mental Status: mental status grossly normal Speech and movement: Normal speech and movement present Affect: normal affect Thought content: Yes Normal thought content present Objective Data Vital Signs Vital Signs: Vital Signs - 24 hr 01/03/20 20:00 01/03/20 22:00 01/04/20 06:00 Temperature 36.8 C 37.1
[2020-01-04 19:20] VITALS: PULSE 77; RESP 16; O2SAT 99
[2020-01-04 20:13] VITALS: PULSE 77; RESP 16; O2SAT 99
[2020-01-04] MEDS: TRAZODONE HCL 50 MG TABLET PO (21:10)
[2020-01-04 22:00] VITALS: BP 130/70; PULSE 81; RESP 16; TEMP 36.7; O2SAT 98
[2020-01-05] MEDS: metroNIDAZOLE 250 MG TABLET 500 MG PO ×2 (05:34→13:52)
[2020-01-05 06:05] LABS: Hematocrit 41.5 % (42.0-52.0); Hemoglobin 13.8 g/dL (14.0-18.0); Mean Corpuscular HGB Conc 33.3 g/dl (32-36); Mean Corpuscular Volume 90.2 fl (80-100); Mean Platelet Volume 10.7 fl (7.4-10.4); Platelet Count Result 483 k/mm3 (150-375); Red Cell Distribution Width 12.4 % (11.5-14.5); White Blood Count 14.9 K/mm3 (4.5-10.0)
[2020-01-05 06:22] LABS: Triglycerides 151 mg/dL (<150)
[2020-01-05 06:36] VITALS: BP 128/75; PULSE 80; RESP 2; TEMP 36.7; O2SAT 98
--- NOTE | 2020-01-05 08:31 | PM.DS ---
DS: Diagnosis Admitting Diagnosis Admitting Diagnosis: Diverticulitis of large intestine without perforation or abscess without bleeding Discharge Diagnosis (1) Diverticulitis large intestine: Onset Date: 12/23/19 Qualifiers: Diverticulitis bleeding: without bleeding Diverticulitis complication: with perforation and without abscess Qualified Code(s): K57.20 - Diverticulitis of large intestine with perforation and abscess without bleeding Code(s): K57.32 - Diverticulitis of large intestine without perforation or abscess without bleeding Status: Acute Assessment and Plan: Patient is completing the antibiotic course. Original plan was to it and tomorrow for 14 days however because of slight setback with elevated white count and some abdominal pain yesterday 01/04/2020 I will continue antibiotics through Tuesday of next week. Patient will then follow up with Dr. Muñoz in the office for further planning. Patient knows to have a thermometer to take his temperature and call if he consistently runs a temperature greater than 100 F or especially if he has a temperature associated with increasing abdominal pain. (2) Mixed hyperlipidemia: Onset Date: Unknown Code(s): E78.2 - Mixed hyperlipidemia Status: Acute Assessment and Plan: Patient will resume his Crestor as he usually takes at home. (3) Elevated random blood glucose level: Onset Date: Unknown Code(s): R73.09 - Other abnormal glucose Status: Acute Assessment and Plan: Patient will follow up with Dr. Tricia Nascimento regarding this. Probably his elevated glucose was related to his inflammatory response, the use of prednisone, and or the time that he was on TPN here at the hospital through his PICC line. DS: Summary Hospital Course Reason for hospitalization: Acute sigmoid diverticulitis with perforation and walled off free air Hospital Course: Patient was admitted after CT scan in the emergency room showed acute sigmoid diverticulitis with some localized free air. He was treated conservatively with IV antibiotics and then developed a small-bowel obstruction about 5 days into his admission. CT scan was repeated and no abscess was identified. Patient was placed on TPN and had an NG tube for about 4-5 days. Small-bowel obstruction that resolved and his diet was gradually advanced. He has now improved enough that we have changed his antibiotics to p.o. and he will complete approximately a 16 day course of antibiotics prior to going off of them. He will be followed up in the office for further recommendations. Status at Discharge Cognitive/behavioral status at discharge: Unchanged, back to normal level of mental function Functional status at discharge: independent ambulation Overall status at discharge: patient is progressing back to baseline (Still mild bloating after eating. Patient will maintain a low-fiber diet until seen in the office) Time Spent with Patient Time attestation: Total time spent providing and/or coordinating discharge services: Time spent: Greater than 30 minutes Exam Const: General: cooperative, no acute distress, alert and awake Orientation/consciousness: patient oriented x3 HENMT: Mouth: Yes moist mucous membranes Neck: Neck: normal visual inspection Chest: Chest palpation & inspection: normal inspection of the chest Resp: Effort & Inspection: normal respiratory effort Auscultation: clear to auscultation bilaterally Cardio: Jugular venous distension: no JVD Rate: regular rate Rhythm: regular rhythm GI: Inspection: obesity GI Palp: Yes abdominal tenderness (Mild to palpation left lower quadrant and mid abdomen), No Guarding due to palpation present (GI) and No Hernia present Auscultation: normal bowel sounds Rectal Exam: deferred Neuro: General: patient oriented x3 and moves all extremities Speech: normal speech Extrem: General: normal exam except as noted Psych: Mental Status:
[2020-01-05] MEDS: FAMOTIDINE 20 MG TABLET PO (09:09)
[2020-01-05] MEDS: ENOXAPARIN 40 MG/0.4 ML SYRINGE SUB-Q (09:10)
[2020-01-05 14:00] VITALS: BP 126/73; PULSE 85; RESP 14; TEMP 36.8; O2SAT 99
--- NOTE | 2020-01-13 16:00 | PC.NURSE ---
called 01/13/20 @ 8072 regarding that her 's abdominal pain has worsened. She stated that he does not have a fever, is tolerating PO well and having BMs. No complaint of N/V. I recommended for her to call Dr. Muñoz's office first thing tomorrow morning regarding her concerns. His follow up appointment is not until 01/21/20. Advice to return to ER if symptoms worsen.
== END 2020-01-05 16:57 | disposition home or self-care (01) | DRG 392 ==
LOC: ANHED 04:05 → ANH3MEDSUR 05:31
PROVIDERS: Surgery; Admitting Provider Surgery; Emergency Provider Emergency Medicine; PCP Family Medicine; Visit Provider Surgery
DX: K57.20 Diverticulitis of large intestine with perforation and abscess without bleeding (principal); K56.609 Unspecified intestinal obstruction, unspecified as to partial versus complete obstruction; E44.0 Moderate protein-calorie malnutrition; E78.2 Mixed hyperlipidemia; M46.1 Sacroiliitis, not elsewhere classified; Z79.52 Long term (current) use of systemic steroids; Z68.29 Body mass index [BMI] 29.0-29.9, adult
CPT/HCPCS: 36415; 36569; 74018; 74176; 74177; 74240; 74248; 80048; 80053; 80170; 81001; 83690; 83735; 84100; 84134; 84466; 84478; 85025; 85027; 85610; 85730; 86850; 86900; 86901; 87040; 96361; 96365; 96375; 96376; 97116; 97161; 99285; A9270; C1751; G0378; J1580; J1650; J1741; J2270; J2405; J2543; J3480; J7030; J7120; Q9967

== ENCOUNTER 2020-01-21 15:02 | Outpatient (CLI) | payer MEDICARE, OTHER, SELFPAY ==
[2020-01-21 15:55] LABS: Basophils Percent Auto 0.2 % (0.2-1.2); Eosinophils Absolute Auto 0.3 K/mm3 (0-0.3); Eosinophils Percent Auto 2.4 % (0-4.4); Hematocrit 40.4 % (42.0-52.0); Hemoglobin 13.1 g/dL (14.0-18.0); Immature Granulocyte Absolute 0.08 K/mm3 (0.00-0.031); Immature Granulocyte Percent A 0.6 % (0-0.5); Lymphocytes Absolute Auto 2.59 K/mm3 (0.9-3.2); Lymphocytes Percent Auto 19.7 % (18.3-44.2); Mean Corpuscular HGB Conc 32.4 g/dl (32-36); Mean Corpuscular Hemoglobin 29.8 pg (26-34); Mean Corpuscular Volume 91.8 fl (80-100); Monocytes Percent Auto 7.9 % (2.6-8.5); Neutrophils Absolute Auto 9.1 K/mm3 (1.3-6.7); Neutrophils Percent Auto 69.2 % (45.5-73.1); Platelet Count Result 315 k/mm3 (150-375); Red Cell Distribution Width 12.5 % (11.5-14.5); White Blood Count 13.2 K/mm3 (4.5-10.0)
== END 2020-01-21 15:03 | disposition home or self-care (01) ==
PROVIDERS: PCP Family Medicine; Visit Provider Surgery
DX: K57.20 Diverticulitis of large intestine with perforation and abscess without bleeding (principal)
CPT/HCPCS: 36415; 85025

== ENCOUNTER 2020-01-30 13:19 | Outpatient (CLI) | payer MEDICARE, OTHER, SELFPAY ==
[2020-01-30 13:46] LABS: Hematocrit 40.2 % (42.0-52.0); Mean Corpuscular HGB Conc 32.3 g/dl (32-36); Mean Corpuscular Hemoglobin 30.1 pg (26-34); Mean Corpuscular Volume 93.1 fl (80-100); Mean Platelet Volume 10.9 fl (7.4-10.4); Platelet Count Result 323 k/mm3 (150-375); Red Blood Count 4.32 M/mm3 (4.6-6.20); White Blood Count 9.9 K/mm3 (4.5-10.0)
== END 2020-01-30 13:20 | disposition home or self-care (01) ==
LOC: ANHLAB 13:26
PROVIDERS: PCP Family Medicine; Visit Provider Surgery
DX: K57.32 Diverticulitis of large intestine without perforation or abscess without bleeding (principal)
CPT/HCPCS: 36415; 85027

== ENCOUNTER 2020-03-06 00:46 | Day surgery (SDC) | payer MEDICARE, OTHER, SELFPAY ==
[2020-03-03 10:42] VITALS: BMI 29.3
--- NOTE | 2020-03-05 18:08 | P.PNAN_ITS ---
Anes - Eval Pre Procedure Procedure: Operation Date: 03/06/20 08:00 Proposed Procedures p Colonoscopy - José Hunter MD Date/Time: 03/05/20 18:08 Pre Op Diagnosis: diverticulitis Patient Data Age: 64 Gender: M Height: 5 ft 7 in Weight: 85 kg Allergies Allergy/AdvReac Type Severity Reaction Status Date / Time No Known Allergies Allergy Mild Verified 03/03/20 10:38 Home Medications Medication Instructions Recorded Confirmed Type ergocalciferol (vitamin D2) 1,250 50,000 unit PO WEEKLY 10/11/19 03/03/20 Histo ry mcg (50,000 unit) capsule rosuvastatin 10 mg tablet 10 mg PO DAILY 10/11/19 03/03/20 History [facility] Plus Lutein 1 tablet PO DAILY 12/23/19 03/03/20 History Patient hx anesthesia problems: none Family hx anesthesia problems: none PMFSH Past Medical History Medical History Bunion of great toe Diverticulitis large intestine (12/23/19) Elevated random blood glucose level (Unknown) Mixed hyperlipidemia (Unknown) Protein-calorie malnutrition, moderate Small bowel obstruction Surgical History Surgical History History of bunionectomy of right great toe History of surgical removal of meniscus of knee Jenifer escamilla Family History Family History Mother Family history of elevated blood lipids Patient's mother is in good health Family history of malignant neoplasm of breast in first degree relative, Onset Age: 41 Father Family history of elevated blood lipids Patient's father is Skin cancer Social History Social History Social History: Smoking packs per day: 1 Smoking cigarettes per day: 20.0 Years smoked: 23 Smoking pack-years: 23.00 Smoking status: Former smoker Tobacco type: cigarettes Second hand tobacco smoke exposure: No Alcohol intake: former Drinks per week: 20 Substance use: never Substance use type: does not use Gender identity (if verbalized by the patient): Male Spiritual care concerns: No Agree to blood products: Yes Exam Day of Procedure 03/05/20 18:08
[2020-03-06 06:39] VITALS: BP 119/77; PULSE 73; RESP 18; TEMP 36.3; O2SAT 98; BMI 29.0
[2020-03-06] MEDS: LACTATED RINGERS 1,000 ML 150 ML IV CONT (07:09)
--- NOTE | 2020-03-06 07:26 | WPDANESEFPP ---
Anes - Eval Final PreProcedure Day of Procedure 03/06/20 07:26 Patient weight: overweight Heart: regular rate and rhythm Lungs: clear to auscultation Airway: Mallampati scale class 1 Neurological: alert and oriented Last oral intake: >/= 8 hours ASA classification: II Emergent: no Anesthetic plan: proceed Anesthesia type and monitoring: general GIVS and standard monitoring Informed Consent: The patient's anesthetic plan and its attendant risks and benefits were discussed with the patient/family/POA. Questions were solicited and answers provided to the satisfaction of the patient/family/POA.
--- NOTE | 2020-03-06 07:59 | WPDGICN ---
Assessment and Plan Assessment and plan (1) Diverticulitis large intestine: Onset Date: 12/23/19 Qualifiers: Diverticulitis bleeding: without bleeding Diverticulitis complication: with perforation and without abscess Qualified Code(s): K57.20 - Diverticulitis of large intestine with perforation and abscess without bleeding Code(s): K57.32 - Diverticulitis of large intestine without perforation or abscess without bleeding Status: Acute Assessment and Plan: Patient with recurrent episodes of diverticulitis. He has some persistent left lower quadrant abdominal discomfort plan is for a high-fiber diet. Fiber supplements may be of some benefit. A colonoscopy to evaluate the colon exclude other etiologies for his diverticulitis and for resolution of inflammation is advised this will be performed electively. (2) Acute pain: Code(s): R52 - Pain, unspecified Status: Resolved (3) Sacroiliitis: Code(s): M46.1 - Sacroiliitis, not elsewhere classified Status: Chronic Assessment and Plan: Agree with holding steroids until healing from diverticulitis is occurred. (4) Mixed hyperlipidemia: Onset Date: Unknown Code(s): E78.2 - Mixed hyperlipidemia Status: Acute GI Consult Note Consult date/time: 03/06/20 07:59 HPI: Huang Santamaria is a 64 year old male Seen in evaluation at the request of Dr. Henry and Dr. Muñoz. Patient has a history of hospitalization for diverticulitis. He was felt to have perforation at that time. He was treated with broad-spectrum antibiotic coverage his initial left lower quadrant pain improved but relapsed after discharge. This required a 2nd course of antibiotics. Patient states that he no longer is febrile as bowel habits are return to normal. He continues to have a persistent left lower quadrant abdominal discomfort. Initial admission for diverticulitis was December 21, 2019. His past history is significant for to sacroiliitis. In initially was given a trial of prednisone prior to antibiotic coverage. Patient's family history is noncontributory Review of Systems Review of Systems: All systems reviewed & are unremarkable except as noted in HPI and below PMFSH Past Medical History Medical History Bunion of great toe Diverticulitis large intestine (12/23/19) Elevated random blood glucose level (Unknown) Mixed hyperlipidemia (Unknown) Protein-calorie malnutrition, moderate Small bowel obstruction Surgical History Surgical History History of bunionectomy of right great toe History of surgical removal of meniscus of knee Jenifer andi Family History Family History Mother Family history of elevated blood lipids Patient's mother is in good health Family history of malignant neoplasm of breast in first degree relative, Onset Age: 41 Father Family history of elevated blood lipids Patient's father is Skin cancer Social History Social History Social History: Smoking packs per day: 1 Smoking cigarettes per day: 20.0 Years smoked: 23 Smoking pack-years: 23.00 Smoking status: Former smoker Tobacco type: cigarettes Second hand tobacco smoke exposure: No Alcohol intake: former Drinks per week: 20 Substance use: never Substance use type: does not use Gender identity (if verbalized by the patient): Male Spiritual care concerns: No Agree to blood products: Yes Meds Home Medications and Allergies Home Medications Medication Instructions Recorded Confirmed Type ergocalciferol (vitamin D2) 1,250 50,000 unit PO WEEKLY 10/11/19 03/06/20 History mcg (50,000 unit) capsule rosuvastatin 10 mg tablet 10 mg PO DAILY 10/11/19 03/06/20 History [facility] L
[2020-03-06 08:17] VITALS: BP 93/50; PULSE 70; RESP 18; O2SAT 98
[2020-03-06 08:27] VITALS: BP 80/49; PULSE 69; RESP 18; O2SAT 99
== END 2020-03-06 09:09 | disposition home or self-care (01) ==
PROVIDERS: PCP Family Medicine; Referring Provider Surgery; Visit Provider Internal Medicine Gastroenterology
PROC: 0DJD8ZZ Inspection of Lower Intestinal Tract, Via Natural or Artificial Opening Endoscopic (ICD-10-PCS; CPT 45378; principal; 2020-03-06 08:00)
DX: K57.32 Diverticulitis of large intestine without perforation or abscess without bleeding (principal); K64.8 Other hemorrhoids; E78.2 Mixed hyperlipidemia; M46.1 Sacroiliitis, not elsewhere classified; Z87.891 Personal history of nicotine dependence
CPT/HCPCS: 45378; J2704; J7120

== ENCOUNTER 2020-04-01 09:53 | Outpatient (CLI) | payer MEDICARE, OTHER, SELFPAY ==
--- NOTE | 2020-04-01 10:53 | ECG_ITS ---
Measurements Intervals [place] Rate: 63 P: 48 GA: 246 QRS: 46 QRSD: 101 T: 40 QT: 390 QTc: 402 Interpretive Statements SINUS RHYTHM WITH FIRST DEGREE AV BLOCK BASELINE ARTIFACT- I, II, III, AVF ABNORMAL ECG Electronically Signed On 04-01-2020 11:13:10 CDT by Kiran Durand D.O.
[2020-04-01 11:12] LABS: Hematocrit 40.1 % (42.0-52.0); Hemoglobin 13.4 g/dL (14.0-18.0)
== END 2020-04-01 09:54 | disposition home or self-care (01) ==
LOC: ANHSURGERY 09:55
PROVIDERS: Anesthesiology; PCP Family Medicine; Visit Provider Surgery
DX: Z01.818 Encounter for other preprocedural examination (principal); K57.32 Diverticulitis of large intestine without perforation or abscess without bleeding; E78.00 Pure hypercholesterolemia, unspecified; I44.0 Atrioventricular block, first degree
CPT/HCPCS: 36415; 85014; 85018; 86850; 86900; 86901; 93005

== ENCOUNTER 2020-04-07 00:09 | Outpatient (CLI) | payer MEDICARE, OTHER, SELFPAY ==
[2020-04-07 16:41] LABS: SARS-CoV-2 RNA PCR Negative
== END 2020-04-07 00:10 | disposition home or self-care (01) ==
LOC: ANHCOVIDDT 00:10
PROVIDERS: PCP Family Medicine; Visit Provider Surgery
DX: Z01.818 Encounter for other preprocedural examination (principal); Z11.59 Encounter for screening for other viral diseases
CPT/HCPCS: 87635; C9803; U0003

== ENCOUNTER 2020-04-09 16:24 | Inpatient (IN) | payer MEDICARE, OTHER, SELFPAY ==
[2020-04-01 10:23] VITALS: BMI 29.5
[2020-04-01 10:52] VITALS: BP 141/88; PULSE 68; RESP 18; TEMP 37.1; O2SAT 98
--- NOTE | 2020-04-08 15:37 | WPDANESEPPF ---
Anes - Initial Pre Proc Eval Procedure: Operation Date: 04/09/20 10:30 Proposed Procedures p Hand Assisted Laparoscopic Sigmoidectomy - Antwon Muñoz MD Date/Time: 04/08/20 15:37 Surgeon: Antwon Muñoz MD Pre Op Diagnosis: diverticulitis Patient Data Age: 64 Gender: M Height: 1.7 m Weight: 85.4 kg Last Vital Signs Temp 37.1 C 04/01/20 10:52 Pulse 68 04/01/20 10:52 Resp 18 04/01/20 10:52 BP 141/88 H 04/01/20 10:52 Pulse Ox 98 04/01/20 10:52 Allergies Allergy/AdvReac Type Severity Reaction Status Date / Time No Known Allergies Allergy Mild Verified 04/09/20 09:31 Home Medications Medication Instructions Recorded Confirmed Type ergocalciferol (vitamin D2) 1,250 50,000 unit PO WEEKLY 10/11/19 04/09/20 History mcg (50,000 unit) capsule rosuvastatin 10 mg tablet 10 mg PO QPM 10/11/19 04/09/20 History [facility] Lutein 1 tablet PO DAILY 12/23/19 04/09/20 History Patient hx anesthesia problems: none Family hx anesthesia problems: none PMFSH Past Medical History Medical History (Updated 04/08/20 @ 15:38 by Davis Camargo MD) Bunion of great toe Diverticulitis large intestine (12/23/19) Elevated random blood glucose level (Unknown) Mixed hyperlipidemia (Unknown) Overweight (BMI 25.0-29.9) Protein-calorie malnutrition, moderate Sacroiliitis Small bowel obstruction Surgical History Surgical History History of bunionectomy of right great toe History of surgical removal of meniscus of knee R klnee Social History Social History Social History: Smoking packs per day: 1 Smoking cigarettes per day: 20.0 Years smoked: 23 Smoking pack-years: 23.00 Smoking status: Former smoker Tobacco type: cigarettes Second hand tobacco smoke exposure: No Alcohol intake: former Drinks per week: 20 Substance use: never Substance use type: does not use Gender identity (if verbalized by the patient): Male Spiritual care concerns: No Agree to blood products: Yes Anes - Eval Final PreProcedure Day of Procedure 04/08/20 15:37 Patient weight: overweight Heart: regular rate and rhythm Lungs: clear to auscultation and normal air movement Airway: Mallampati scale class II Neurological: alert and oriented Last oral intake: >/= 8 hours ASA classification: II Emergent: no Anesthetic plan: proceed Anesthesia type and monitoring: general ETT Informed Consent: The patient's anesthetic plan and its attendant risks and benefits were discussed with the patient/family/POA. Questions were solicited and answers provided to the satisfaction of the patient/family/POA.
[2020-04-09] VITALS (13 sets, daily range): BP systolic 95–138; BP diastolic 54–81; PULSE 76–93; RESP 10–18; TEMP 36.3–37.2; O2SAT 94–99
--- NOTE | 2020-04-09 06:39 | WPDHPUPDATE1 ---
History and Physical Update Update Date/Time: 04/09/20 06:39 History and Physical has been reviewed, including an updated exam of the patient. There are NO changes in the patient's condition. Risks, benefits, and alternatives have been discussed and questions answered. Patient agrees to proceed with procedure.
[2020-04-09] MEDS: LACTATED RINGERS 1,000 ML 30 ML IV CONT ×2 (09:00→15:15)
[2020-04-09] MEDS: ALVIMOPAN 12 MG CAPSULE PO (09:00)
[2020-04-09] MEDS: IBUPROFEN IV 800 MG/200 ML 800 MG/200 ML BAG 400 MG IVPB ×2 (09:30→17:15)
--- NOTE | 2020-04-09 10:26 | PM.PROC ---
Procedure Note - Detailed Date of procedure: 04/09/20 Pre-op diagnosis: diverticulitis Sigmoid diverticulitis Post-op diagnosis: other (Sigmoid diverticulitis, enteroenteric fistula) Procedure performed: Hand access laparoscopic sigmoidectomy with hand-sewn colorectal anastomosis, small bowel resection Description of procedure: The patient was taken to surgery and induced into general anesthesia. He was placed in the lithotomy with Marvin stirrups. Topete catheter was placed. Rectal irrigation and rectal tube were placed. The abdomen was prepped and draped. The proposed lower abdominal midline incision was marked on the skin. This was for the hand access port. Local was infiltrated into the skin and the deeper subcutaneous tissues. Incision was made and dissection was carried down through the subcutaneous to the midline fascia. The fascia was opened the length of the wound. The peritoneum was then opened the length of the wound. I put a hand in the abdomen and found adhesions of small intestine to the anterior abdominal wall. These were exposed and then taken down by a combination of blunt and sharp dissection. Once this loop of bowel was freed from the abdominal wall I was able to examine and more closely. About 12 cm apart, 2 loops of small intestine were densely adherent with some inflammatory process between the 2. I carefully dissected this apart with sharp dissection and found a fistula between the 2 loops of bowel. I took down the fistula. There were 2 openings in the small intestine related to each end of the fistula. Rather than try to repair each of these separately, I thought it would be more prudent to simply resect the entire segment. I used the Harmonic scalpel to dissect and divide the mesentery up to the small bowel that was healthy and beyond the fistulous opening. This was done on each side. I then divided each segment of small bowel with a transverse linear stapler 55 mm. I then divided the mesentery to the small bowel segment with the Harmonic scalpel. This freed the in of all bowel completely. 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 I then anastomosed the 2 loops of bowel back to 1 another. This was done also with the transverse linear stapler. This was a [id number] but functional end-to-end anastomosis. After creating the anastomosis, I closed the entero enterotomy with a 60 mm linear stapler. I used the cautery to achieve good hemostasis on the staple lines. There was obviously good vascularity to the involved bowel. I then closed the mesenteric defect with interrupted 4 0 silk simple suture. This loop of bowel was then placed back in the abdomen. I then looked at the anterior abdominal wall where the loops of bowel had been adherent. It seemed that they were adherent only to some properitoneal fat in the midline although the dome of the bladder was not particularly far from this adhesion. I dissected carefully where the adhesion and fistula had been located. I over sewed the areas where it was located with 2 0 Vicryl interrupted suture just in case there was an enterocutaneous fistula. Once this was completed, I checked the surrounding abdominal wall and found no other problems. We then proceeded with the hand access laparoscopic sigmoidectomy that we had planned to perform. The Swapdom wound guard was then placed. The GelPort was placed. A 10 11 trocar was then placed again using local anesthetic in the left mid abdomen. Similarly, but now under direct visualization, a 10 11 was placed in the upper abdominal midline above the umbilicus. A 12 mm port was placed in the right mid abdomen. The patient was placed in Trendelenburg with the left side slightly elevated. Dissection was started with the left colon. We divided the lateral peritoneal attachments to the proximal and mid left colon mobilizing it medially. We dissected it further medially and eventually came to the sigmoid colon. As expected, th
[2020-04-09] MEDS: ceFAZolin 2 GM/D5W 50 ML 2 GM/50 ML BAG IVPB (10:38)
[2020-04-09] MEDS: metroNIDAZOLE 500 MG/ISO 100ML 500 MG/100 ML BAG 100 MG IVPB (10:55)
[2020-04-09] MEDS: BUPIVACAINE/EPINEPHRINE 0.5% 30 ML VIAL INFILTRATE (13:20)
[2020-04-09] MEDS: ceFAZolin SODIUM 1 GM VIAL 2 GM IV PUSH (14:30)
[2020-04-09] MEDS: LACTATED RINGERS 1,000 ML 100 ML IV CONT (17:13)
--- NOTE | 2020-04-09 18:34 | PC.NURSE ---
Returned from OR per BED IV SITE CLEAN PATENT AND INFUSING WITHOUT DIFFICULTY. INCISION SITES GRISELDA AND CLEAN. GRECO DRAINING CLEAR YELLOW URINE. MILD PAIN NOTED TO ABDOMEN PER PT. IN NO APPARENT DISTRESS]
[2020-04-09] MEDS: FAMOTIDINE 20 MG/2 ML VIAL IV PUSH (21:54)
[2020-04-09] MEDS: IBUPROFEN IV 800 MG/200 ML 800 MG/200 ML BAG 200 MG IVPB (23:32)
[2020-04-10 02:00] VITALS: BP 104/60; PULSE 87; RESP 16; TEMP 36.7; O2SAT 96
[2020-04-10] MEDS: IBUPROFEN IV 800 MG/200 ML 800 MG/200 ML BAG 200 MG IVPB ×3 (05:07→17:20)
[2020-04-10] MEDS: LACTATED RINGERS 1,000 ML 100 ML IV CONT ×2 (05:09→15:24)
[2020-04-10 06:00] VITALS: BP 99/57; PULSE 85; RESP 16; TEMP 36.7; O2SAT 96
[2020-04-10 06:09] LABS: Basophils Percent Auto 0.1 % (0.2-1.2); Hematocrit 35.7 % (42.0-52.0); Hemoglobin 11.8 g/dL (14.0-18.0); Immature Granulocyte Absolute 0.11 K/mm3 (0.00-0.031); Immature Granulocyte Percent A 0.6 % (0-0.5); Lymphocytes Absolute Auto 0.85 K/mm3 (0.9-3.2); Lymphocytes Percent Auto 4.7 % (18.3-44.2); Mean Corpuscular HGB Conc 33.1 g/dl (32-36); Mean Corpuscular Hemoglobin 30.7 pg (26-34); Mean Platelet Volume 11.1 fl (7.4-10.4); Monocytes Absolute Auto 0.9 K/mm3 (0.1-0.6); Monocytes Percent Auto 4.8 % (2.6-8.5); Neutrophils Absolute Auto 16.2 K/mm3 (1.3-6.7); Neutrophils Percent Auto 89.8 % (45.5-73.1); Platelet Count Result 200 k/mm3 (150-375); Red Blood Count 3.84 M/mm3 (4.6-6.20); Red Cell Distribution Width 13.5 % (11.5-14.5)
[2020-04-10 06:25] LABS: Blood Urea Nitrogen 12 mg/dL (9-20); Calcium 8.5 mg/dL (8.4-10.2); Carbon Dioxide 24 mmol/L (22-30); Chloride 107 mmol/L (98-107); Estimated CRCL calculation 66 ml/min; Estimated Glomerular Filt Rate > 60; Glucose 148 mg/dL (75-110); Potassium 4.1 mmol/L (3.4-5.0); Sodium 136 mmol/L (137-145)
[2020-04-10] MEDS: ACETAMINOPHEN 500 MG TABLET PO (08:29)
[2020-04-10 10:06] VITALS: BP 101/65; PULSE 87; RESP 16; TEMP 36.7; O2SAT 97
--- NOTE | 2020-04-10 10:50 | PM.PNGS ---
Progress Note: A&P Assessment and Plan (1) Diverticulitis large intestine: Onset Date: 12/23/19 Qualifiers: Diverticulitis bleeding: without bleeding Diverticulitis complication: with perforation and without abscess Qualified Code(s): K57.20 - Diverticulitis of large intestine with perforation and abscess without bleeding Code(s): K57.32 - Diverticulitis of large intestine without perforation or abscess without bleeding Status: Acute Assessment and Plan: POD1 and patient doing well. Will advance to full liquids. Awaiting return of bowel function. Encouraged increased activity and walking the halls today. Leave Topete in place today. Repeat labs tomorrow. Pathology pending. (2) Mixed hyperlipidemia: Onset Date: Unknown Code(s): E78.2 - Mixed hyperlipidemia Status: Acute Assessment and Plan: Will restart rosuvastatin. Additional Plan Discussed plan of care with Dr. Muñoz. Subjective Subjective Date/Time Seen: 04/10/20 10:00 Post Op day: 1 (ALEXANDER sigmoidectomy, small-bowel resection) Patient reports: tolerating liquids well, no flatus and no bowel movement Interval history: Patient reports feeling well this morning with mild sore abdominal pain that has been well controlled with the ibuprofen. Reports tolerating getting up to the chair but has not walked in the halls. Tolerating clear liquids with no nausea, vomiting, or bloating. No flatus or BM. Reports mild left neck pain. No other complaints at this time. Review of Systems Review of Systems: All systems reviewed & are unremarkable except as noted in HPI and below Constitutional: Constitutional: Reports no additional constitutional complaints, Denies chills and Denies fever(s) Cardiovascular: Cardiovascular: Reports no additional cardiovascular complaints, Denies chest pain and Denies leg edema Respiratory: Respiratory: Reports no additional respiratory complaints, Denies chest congestion, Denies cough and Denies dyspnea Gastrointestinal: Gastrointestinal: Reports as per HPI and Reports no additional gastrointestinal complaints Genitourinary: Comments: Tpoete in place. Musculoskeletal: Musculoskeletal: Reports neck pain Exam Const: General: comfortable, no acute distress, alert and awake Orientation/consciousness: patient oriented x3 Resp: Effort & Inspection: normal respiratory effort and able to speak in complete sentences Auscultation: clear to auscultation bilaterally Cardio: Rate: regular rate Rhythm: regular rhythm GI: Inspection: non-distended and incision (Abdominal incisions clean/dry/intact.) GI Palp: Yes Soft to palpation, Yes Tenderness to palpation present (GI) (Diffusely tender, mostly near incisions), No Guarding due to palpation present (GI) and No Rebound tenderness present Auscultation: Hypoactive bowel sounds present Neuro: General: moves all extremities Cranial nerves: Yes CN's II-XII intact bilaterally Speech: normal speech Extrem: General: no calf tenderness and no edema Psych: Mental Status: mental status grossly normal Attitude: cooperative Thought process: Normal thought process present Thought content: Yes Normal thought content present Objective Data Vital Signs Vital Signs: Vital Signs - 24 hr 04/09/20 15:15 04/09/20 15:30 04/09/20 15:45 Temperature 36.4 C L Pulse Rate 80 79 83 Respiratory Rate 10 L 10 L 10 L Blood Pressure 101/55 L 101/59 L 113/66 Pulse Oximetry 99 98 99 04/09/20 16:00 04/09/20 16:15 04/09/20 16:45 Temperature 36.8 C Pulse Rate 81 83 83 Respiratory Rate 12 13 18 Blood Pressure 122/69 111/73 119/65 Pulse Oximetry 95 94 95 04/09/20 17:00 04/09/20 17:30 04/09/20 18:24 Temperature 36.8 C 36.3 C L Pulse Rate 83 89 83 Respiratory Rate 16 16 13 Blood Pressure 105/65 95/66 L Pulse Oximetry 94 95 94 04/09/20 18:30 04/09/20 21:52 04/09/20 22:00 Temperature 36.9 C 37.2 C Pulse Rate 91 89 93 Respiratory Rate 16 16 16
[2020-04-10 14:00] VITALS: BP 101/68; PULSE 89; RESP 16; TEMP 36.6; O2SAT 98
[2020-04-10] MEDS: ENOXAPARIN 40 MG/0.4 ML SYRINGE SUB-Q (15:26)
[2020-04-10] MEDS: ALVIMOPAN 12 MG CAPSULE PO ×2 (15:26→20:32)
[2020-04-10] MEDS: ROSUVASTATIN 10 MG TABLET PO (17:23)
[2020-04-10] MEDS: FAMOTIDINE 20 MG TABLET PO (20:32)
[2020-04-10 22:00] VITALS: BP 111/67; PULSE 80; RESP 18; TEMP 36.7; O2SAT 98
[2020-04-10] MEDS: IBUPROFEN IV 800 MG/200 ML 800 MG/200 ML BAG 400 MG IVPB (22:20)
[2020-04-11] MEDS: LACTATED RINGERS 1,000 ML 100 ML IV CONT (02:41)
[2020-04-11] MEDS: IBUPROFEN IV 800 MG/200 ML 800 MG/200 ML BAG 400 MG IVPB ×2 (05:13→11:12)
[2020-04-11 05:58] LABS: Basophils Percent Auto 0.1 % (0.2-1.2); Hematocrit 30.6 % (42.0-52.0); Hemoglobin 9.8 g/dL (14.0-18.0); Immature Granulocyte Percent A 0.6 % (0-0.5); Lymphocytes Absolute Auto 2.05 K/mm3 (0.9-3.2); Lymphocytes Percent Auto 12.6 % (18.3-44.2); Mean Corpuscular Hemoglobin 30.4 pg (26-34); Mean Platelet Volume 11.6 fl (7.4-10.4); Monocytes Absolute Auto 1.1 K/mm3 (0.1-0.6); Neutrophils Absolute Auto 12.9 K/mm3 (1.3-6.7); Neutrophils Percent Auto 79.7 % (45.5-73.1); Platelet Count Result 164 k/mm3 (150-375); Red Blood Count 3.22 M/mm3 (4.6-6.20); Red Cell Distribution Width 13.5 % (11.5-14.5); White Blood Count 16.2 K/mm3 (4.5-10.0)
[2020-04-11 06:02] VITALS: BP 145/79; PULSE 73; RESP 18; TEMP 37; O2SAT 99
[2020-04-11 06:07] LABS: Blood Urea Nitrogen 16 mg/dL (9-20); Calcium 8.5 mg/dL (8.4-10.2); Carbon Dioxide 29 mmol/L (22-30); Chloride 107 mmol/L (98-107); Estimated CRCL calculation 84 ml/min; Estimated Glomerular Filt Rate > 60; Glucose 120 mg/dL (75-110); Potassium 4.1 mmol/L (3.4-5.0); Sodium 139 mmol/L (137-145)
[2020-04-11] MEDS: ENOXAPARIN 40 MG/0.4 ML SYRINGE SUB-Q (08:44)
[2020-04-11] MEDS: ALVIMOPAN 12 MG CAPSULE PO ×2 (08:44→20:34)
[2020-04-11] MEDS: FAMOTIDINE 20 MG TABLET PO ×2 (08:44→20:34)
[2020-04-11] MEDS: ACETAMINOPHEN 500 MG TABLET PO (08:47)
--- NOTE | 2020-04-11 15:19 | PM.PNGS ---
Progress Note: A&P Assessment and Plan (1) Diverticulitis large intestine: Onset Date: 12/23/19 Qualifiers: Diverticulitis bleeding: without bleeding Diverticulitis complication: with perforation and without abscess Qualified Code(s): K57.20 - Diverticulitis of large intestine with perforation and abscess without bleeding Code(s): K57.32 - Diverticulitis of large intestine without perforation or abscess without bleeding Status: Chronic Assessment and Plan: Doing very well postop day 2. Status post hand access laparoscopic sigmoidectomy with hand-sewn colorectal anastomosis. Pain control is quite good with minimal analgesics. Will DC Topete catheter today. Advance to solid food. Recheck labs again in morning. If doing well could probably go home tomorrow. Subjective Subjective Date/Time Seen: 04/11/20 15:19 Post Op day: 2 Patient reports: no new complaints, pain is less, tolerating liquids well and bowel movement Review of Systems Review of Systems: All systems reviewed & are unremarkable except as noted in HPI and below Constitutional: Constitutional: Denies headache(s) Cardiovascular: Cardiovascular: Denies chest pain and Denies dyspnea Respiratory: Respiratory: Denies cough and Denies dyspnea Gastrointestinal: Gastrointestinal: Reports as per HPI Exam Const: General: comfortable and no acute distress; No confusion Orientation/consciousness: patient oriented x3 and No confusion GI: Inspection: no edema, non-distended and incision (All incisions healing well) GI Palp: Yes Soft to palpation, Yes Tenderness to palpation present (GI) (Mild appropriate incisional tenderness), No Guarding due to palpation present (GI) and No Rebound tenderness present Auscultation: normal bowel sounds Neuro: General: patient oriented x3, no focal motor deficits and No confusion Extrem: General: no calf tenderness and no edema Psych: Affect: normal affect Insight: Good insight present (Psych) Judgement: Good judgement present (Psych) Objective Data Vital Signs Vital Signs: Vital Signs - 24 hr 04/10/20 22:00 04/11/20 06:02 Temperature 36.7 C 37.0 C Pulse Rate 80 73 Respiratory Rate 18 18 Blood Pressure 111/67 145/79 H Pulse Oximetry 98 99 Intake/Output Intake/Output: Intake & Output 04/08/20 04/09/20 04/10/20 04/11/20 23:59 23:59 23:59 23:59 Intake Total 900 5270 1580 Output Total 60 3675 500 Balance 840 1595 1080 Meds/Results Medications: Active Medications Generic Name Dose Route Start Last Admin Trade Name Thomq PRN Reason Stop Dose Admin Acetaminophen 500 mg 04/09/20 16:24 04/11/20 08:47 Tylenol Tablet PO 500 mg Q6H PRN Administration Mild Pain (1-3) or Fever Hydrocodone Bitart/Acetaminophen 1 tab 04/09/20 16:24 [place] 5-325 Mg PO Q4H PRN Pain Rated 4-6 Hydrocodone Bitart/Acetaminophen 1 tab 04/09/20 16:24 [place] 10-325 Mg PO Q4H PRN Pain Rated 7-10 Alvimopan 12 mg 04/10/20 15:12 04/11/20 08:44 Entereg PO 04/17/20 15:13 12 mg Q12HR GHASSAN Administration Enoxaparin Sodium 40 mg 04/10/20 09:00 04/11/20 08:44 Lovenox SUB-Q 40 mg DAILY GHASSAN Administration Famotidine 20 mg 04/10/20 21:00 04/11/20 08:44 Pepcid PO 20 mg Q12HR GHASSAN Administration Morphine Sulfate 1 mg 04/11/20 15:14 Morphine Sulfate Inj IV PUSH Q2H PRN Pain Rated 4-6 Morphine Sulfate 2 mg 04/11/20 15:15 Morphine Sulfate Inj IV PUSH Q2H PRN Pain Rated 7-10 Naloxone HCl 0.1 mg 04/09/20 16:24 Narcan IV PUSH Q2M PRN Opiate Reversal Ondansetron HCl 4 mg 04/09/20 16:24 Zofran Inj IV PUSH Q4H PRN Nausea And Vomiting Rosuvastatin Calcium 10 mg 04/10/20 18:00 04/10/20 17:23 Crestor PO 10 mg QPM GHASSAN Administration Labs Labs: Laboratory Results - last 24 hr 04/11/20 04/11/20 05:12 05:12 WBC 16.2 H RBC 3.22 L Hgb 9.8 L Hct 30
[2020-04-11] MEDS: ROSUVASTATIN 10 MG TABLET PO (18:06)
[2020-04-11 21:59] VITALS: BP 122/64; PULSE 66; RESP 18; TEMP 36.8; O2SAT 99
[2020-04-12 05:57] VITALS: BP 122/72; PULSE 64; RESP 18; TEMP 36.6; O2SAT 100
[2020-04-12] MEDS: ACETAMINOPHEN 500 MG TABLET PO (06:05)
[2020-04-12 06:50] LABS: Basophils Percent Auto 0.3 % (0.2-1.2); Eosinophils Absolute Auto 0.1 K/mm3 (0-0.3); Hematocrit 28.2 % (42.0-52.0); Hemoglobin 9.1 g/dL (14.0-18.0); Immature Granulocyte Absolute 0.06 K/mm3 (0.00-0.031); Immature Granulocyte Percent A 0.5 % (0-0.5); Lymphocytes Absolute Auto 3.94 K/mm3 (0.9-3.2); Lymphocytes Percent Auto 34.8 % (18.3-44.2); Mean Corpuscular HGB Conc 32.3 g/dl (32-36); Mean Corpuscular Hemoglobin 30.7 pg (26-34); Mean Corpuscular Volume 95.3 fl (80-100); Mean Platelet Volume 11.6 fl (7.4-10.4); Monocytes Absolute Auto 0.8 K/mm3 (0.1-0.6); Monocytes Percent Auto 7.4 % (2.6-8.5); Neutrophils Absolute Auto 6.3 K/mm3 (1.3-6.7); Platelet Count Result 167 k/mm3 (150-375); Red Blood Count 2.96 M/mm3 (4.6-6.20); Red Cell Distribution Width 13.5 % (11.5-14.5); White Blood Count 11.3 K/mm3 (4.5-10.0)
[2020-04-12 07:02] LABS: Blood Urea Nitrogen 14 mg/dL (9-20); Calcium 8.1 mg/dL (8.4-10.2); Carbon Dioxide 31 mmol/L (22-30); Chloride 105 mmol/L (98-107); Estimated CRCL calculation 74 ml/min; Estimated Glomerular Filt Rate > 60; Glucose 88 mg/dL (75-110); Potassium 3.7 mmol/L (3.4-5.0); Sodium 137 mmol/L (137-145)
[2020-04-12] MEDS: ALVIMOPAN 12 MG CAPSULE PO (08:10)
[2020-04-12] MEDS: ENOXAPARIN 40 MG/0.4 ML SYRINGE SUB-Q (08:10)
[2020-04-12] MEDS: FAMOTIDINE 20 MG TABLET PO (08:11)
[2020-04-12 08:35] VITALS: O2SAT 100
--- NOTE | 2020-04-12 13:06 | PM.DS ---
DS: Admitting Diagnosis Admitting Diagnosis Admitting Diagnosis: Sigmoid diverticulitis with perforation DS: Discharge Diagnosis Discharge Diagnosis (1) Diverticulitis large intestine: Onset Date: 12/23/19 Qualifiers: Diverticulitis bleeding: without bleeding Diverticulitis complication: with perforation and without abscess Qualified Code(s): K57.20 - Diverticulitis of large intestine with perforation and abscess without bleeding Code(s): K57.32 - Diverticulitis of large intestine without perforation or abscess without bleeding Status: Chronic DS: Summary Hospital Course Reason for hospitalization: diverticulitis large intestine Hospital Course: This is a 64-year-old man who presented with a recent history of recurrent diverticulitis. He had previously been hospitalized for diverticulitis with micro perforation. He continued to have intermittent symptoms after being released. He now presents for elective sigmoid colectomy. He underwent hand assisted laparoscopic sigmoid colectomy on 04/09/2020. He has been slowly recovering since then. He was started on a clear liquid diet, and activity was slowly advanced as tolerated. He was doing well and was advanced to full liquid diet. His Topete catheter was removed on 04/11 and he was able to urinate without difficulty. He was advanced to a soft diet on 04/11. He was tolerating this well for several meals. He was remaining hemodynamically stable and pain was well controlled. He was then discharged on postop day 3. Status at Discharge Functional status at discharge: independent ambulation Overall status at discharge: patient is progressing back to baseline Time Spent with Patient Time attestation: Total time spent providing and/or coordinating discharge services: Time spent: Less than 30 minutes Exam Const: General: no acute distress Resp: Effort & Inspection: normal respiratory effort Auscultation: clear to auscultation bilaterally Cardio: Rate: regular rate Rhythm: regular rhythm GI: Inspection: non-distended GI Palp: Yes Soft to palpation and Yes Tenderness to palpation present (GI) (Incisional) Skin: Other: Incisions clean, dry, and intact DS: Data Data Completed and Pending Completed studies during hospitalization: Pending at discharge 04/09/20 11:33 Surgical [PTH] Routine Surgical [PTH] Routine Labs on day of discharge: Labs from last 24 hours 04/12/20 04/12/20 05:41 05:41 WBC 11.3 H RBC 2.96 L Hgb 9.1 L Hct 28.2 L MCV 95.3 MCH 30.7 MCHC 32.3 RDW 13.5 Plt Count 167 MPV 11.6 H Immature Gran % (Auto) 0.5 Neut % (Auto) 56.0 Lymph % (Auto) 34.8 [place] % (Auto) 7.4 Eos % (Auto) 1.0 Baso % (Auto) 0.3 Lymph # (Auto) 3.94 H [place] # (Auto) 0.8 H Eos # (Auto) 0.1 Baso # (Auto) 0.0 Abs Immat Gran (auto) 0.06 H Absolute Neuts (auto) 6.3 Absolute Nucleated RBC 0.0 Nucleated RBC % 0.0 Sodium 137 Potassium 3.7 Chloride 105 Carbon Dioxide 31 H BUN 14 Creatinine 0.80 Estim Creat Clear Calc 74 Estimated GFR > 60 Glucose 88 Calcium 8.1 L Discharge Plan Discharge Attending physician on discharge: Antwon Muñoz Discharging Clinician: Zafar Rizo Patient Disposition: Home, Self-Care Activity: may shower, no straining and as tolerated Diet: regular Wound Care Instructions: incision open to air Discharge Instructions: Ambulate 3-4 x per day and as tolerated. No lifting over 15-20lbs. May bathe or shower. Stairs are OK. May drive a car in 3 days. Patient Instructions: Antibiotic Form Stand Alone Forms: General Discharge Information Follow-up/Referrals: Antwon Muñoz MD [Physician] - 2 Weeks Discharge Medications: New hydrocodone-acetaminophen 5-325 mg tablet 1 - 2 tablet PO Q6H PRN (Reason: pain) Qty: 7 RF: 0 ibuprofen 600 mg tablet 600 mg PO Q6H PRN (Reason: pain) Qty: 14 RF: 0
[2020-04-12 14:00] VITALS: BP 126/65; PULSE 75; RESP 20; TEMP 36.9; O2SAT 99
== END 2020-04-12 14:30 | disposition home or self-care (01) | DRG 330 ==
LOC: ANH3MEDSUR 04-11 07:15
PROVIDERS: Admitting Provider Surgery; PCP Family Medicine; Visit Provider Surgery
PROC: 0D1E4Z4 Bypass Large Intestine to Cutaneous, Percutaneous Endoscopic Approach (ICD-10-PCS; principal; 2020-04-09 10:30)
DX: K57.20 Diverticulitis of large intestine with perforation and abscess without bleeding (principal); E44.0 Moderate protein-calorie malnutrition; Z68.29 Body mass index [BMI] 29.0-29.9, adult; E78.2 Mixed hyperlipidemia; Z87.891 Personal history of nicotine dependence
CPT/HCPCS: 36415; 80048; 85025; 87635; 88307; A9270; C1713; C1729; C9803; J0131; J0330; J0690; J1100; J1650; J1741; J2250; J2370; J2405; J2704; J2710; J3010; J7030; J7120; U0003

== ENCOUNTER 2020-04-28 13:54 | Outpatient (CLI) | payer MEDICARE, OTHER, SELFPAY ==
[2020-04-28 14:23] LABS: Hematocrit 34.8 % (42.0-52.0); Hemoglobin 11.6 g/dL (14.0-18.0); Mean Corpuscular HGB Conc 33.3 g/dl (32-36); Mean Corpuscular Hemoglobin 31.5 pg (26-34); Mean Corpuscular Volume 94.6 fl (80-100); Mean Platelet Volume 11.1 fl (7.4-10.4); Platelet Count Result 295 k/mm3 (150-375); Red Blood Count 3.68 M/mm3 (4.6-6.20); Red Cell Distribution Width 13.4 % (11.5-14.5); White Blood Count 8.3 K/mm3 (4.5-10.0)
[2020-04-28 14:55] LABS: Blood Urea Nitrogen 20 mg/dL (9-20); Carbon Dioxide 26 mmol/L (22-30); Chloride 106 mmol/L (98-107); Estimated Glomerular Filt Rate > 60; Glucose 85 mg/dL (75-110); Potassium 4.1 mmol/L (3.4-5.0); Sodium 139 mmol/L (137-145)
== END 2020-04-28 13:55 | disposition home or self-care (01) ==
PROVIDERS: PCP Family Medicine; Visit Provider Surgery
DX: D64.9 Anemia, unspecified (principal); E87.6 Hypokalemia
CPT/HCPCS: 36415; 80048; 85027

== ENCOUNTER 2021-05-12 09:22 | Outpatient (CLI) | payer MEDICARE, OTHER, SELFPAY ==
[2021-05-12 09:51] LABS: Basophils Percent Auto 0.5 % (0.2-1.2); Eosinophils Absolute Auto 0.2 K/mm3 (0-0.3); Eosinophils Percent Auto 1.9 % (0-4.4); Hematocrit 43.4 % (42.0-52.0); Immature Granulocyte Absolute 0.04 K/mm3 (0.00-0.031); Immature Granulocyte Percent A 0.5 % (0-0.5); Lymphocytes Absolute Auto 2.41 K/mm3 (0.9-3.2); Lymphocytes Percent Auto 29.8 % (18.3-44.2); Mean Corpuscular HGB Conc 32.3 g/dl (32-36); Mean Corpuscular Volume 93.1 fl (80-100); Mean Platelet Volume 10.9 fl (7.4-10.4); Monocytes Absolute Auto 0.6 K/mm3 (0.1-0.6); Monocytes Percent Auto 6.8 % (2.6-8.5); Neutrophils Absolute Auto 4.9 K/mm3 (1.3-6.7); Neutrophils Percent Auto 60.5 % (45.5-73.1); Platelet Count Result 194 k/mm3 (150-375); Red Blood Count 4.66 M/mm3 (4.6-6.20); Red Cell Distribution Width 12.9 % (11.5-14.5); White Blood Count 8.1 K/mm3 (4.5-10.0)
[2021-05-12 10:00] LABS: Alanine Aminotransferase 28 U/L (4-50); Albumin Level 4.6 g/dL (3.5-5.1); Alkaline Phosphatase 58 U/L (38-126); Anion Gap 7 mmol/L (8-16); Aspartate Amino Transferase 33 U/L (17-59); Bilirubin,Total 0.5 mg/dL (0.2-1.3); Blood Urea Nitrogen 20 mg/dL (9-20); Calcium 9.3 mg/dL (8.4-10.2); Carbon Dioxide 28 mmol/L (22-30); Chloride 108 mmol/L (98-107); Cholesterol 147 mg/dL (0-200); Estimated Glomerular Filt Rate > 60; Glucose 105 mg/dL (75-110); HDL Direct 51 mg/dL; Potassium 4.9 mmol/L (3.4-5.0); Sodium 143 mmol/L (137-145); Triglycerides 108 mg/dL (<150)
[2021-05-12 10:11] LABS: LDL Cholesterol Direct 72 mg/dL
== END 2021-05-12 09:23 | disposition home or self-care (01) ==
PROVIDERS: PCP Family Medicine; Visit Provider Family Medicine
DX: E78.2 Mixed hyperlipidemia (principal); I10 Essential (primary) hypertension
CPT/HCPCS: 36415; 80053; 80061; 85025

== ENCOUNTER 2022-01-29 08:53 | Outpatient (CLI) | payer MEDICARE, OTHER, SELFPAY ==
[2022-01-29 09:42] LABS: Basophils Percent Auto 0.4 % (0.2-1.2); Eosinophils Absolute Auto 0.2 K/mm3 (0-0.3); Eosinophils Percent Auto 1.9 % (0-4.4); Hematocrit 43.1 % (42.0-52.0); Hemoglobin 14.2 g/dL (14.0-18.0); Immature Granulocyte Absolute 0.03 K/mm3 (0.00-0.031); Immature Granulocyte Percent A 0.4 % (0-0.5); Lymphocytes Absolute Auto 2.33 K/mm3 (0.9-3.2); Lymphocytes Percent Auto 29.7 % (18.3-44.2); Mean Corpuscular HGB Conc 32.9 g/dl (32-36); Mean Corpuscular Hemoglobin 30.9 pg (26-34); Mean Corpuscular Volume 93.9 fl (80-100); Monocytes Absolute Auto 0.6 K/mm3 (0.1-0.6); Monocytes Percent Auto 7.8 % (2.6-8.5); Neutrophils Absolute Auto 4.7 K/mm3 (1.3-6.7); Neutrophils Percent Auto 59.8 % (45.5-73.1); Platelet Count Result 215 k/mm3 (150-375); Red Blood Count 4.59 M/mm3 (4.6-6.20); Red Cell Distribution Width 12.4 % (11.5-14.5); White Blood Count 7.9 K/mm3 (4.5-10.0)
[2022-01-29 09:54] LABS: Alanine Aminotransferase 33 U/L (4-50); Albumin Level 4.5 g/dL (3.5-5.1); Alkaline Phosphatase 66 U/L (38-126); Anion Gap 5 mmol/L (8-16); Aspartate Amino Transferase 31 U/L (17-59); Bilirubin,Total 0.6 mg/dL (0.2-1.3); Blood Urea Nitrogen 20 mg/dL (9-20); Carbon Dioxide 29 mmol/L (22-30); Chloride 106 mmol/L (98-107); Cholesterol 139 mg/dL (0-200); Estimated Glomerular Filt Rate > 60; Glucose 138 mg/dL (65-110); HDL Direct 42 mg/dL; Potassium 4.4 mmol/L (3.4-5.0); Sodium 140 mmol/L (137-145); Triglycerides 99 mg/dL (<150)
[2022-01-29 10:05] LABS: LDL Cholesterol Direct 69 mg/dL
== END 2022-01-29 08:54 | disposition home or self-care (01) ==
LOC: ANHLAB 08:56
PROVIDERS: PCP Family Medicine; Visit Provider Family Medicine
DX: E78.2 Mixed hyperlipidemia (principal); K57.90 Diverticulosis of intestine, part unspecified, without perforation or abscess without bleeding
CPT/HCPCS: 36415; 80053; 80061; 85025

== ENCOUNTER 2022-02-05 14:09 | Outpatient (CLI) | payer MEDICARE, OTHER, SELFPAY ==
[2022-02-05 15:01] LABS: Hemoglobin A1C 6.1 % (<5.7)
== END 2022-02-05 14:10 | disposition home or self-care (01) ==
LOC: ANHLAB 14:13
PROVIDERS: PCP Family Medicine; Visit Provider Nurse Practitioner Gerontology
DX: R73.09 Other abnormal glucose (principal)
CPT/HCPCS: 36415; 83036

== ENCOUNTER 2022-02-16 10:36 | Outpatient (CLI) | payer MEDICARE, OTHER, SELFPAY ==
--- NOTE | ~2022-02-16 | XR_ITS ---
EXAMINATION: XR lumbar spine min 4V DATE: 02/16/2022 10:55 INDICATION: Low back pain TECHNIQUE: Anteroposterior, lateral, and bilateral oblique views of the lumbar spine, and cone-down l ateral view of the lumbosacral junction were obtained. COMPARISON: CT, 12/23/2019 FINDINGS: The vertebral body heights and alignment are normal. There is moderate loss of intervertebr al disc space height at L4-5 and mild loss of disc space height at L3-4. Small degenerative osteophyt es project from the anterior endplates of multiple vertebral bodies. There is moderate facet osteoart hritis of the lower lumbar spine. No fracture is identified. The bowel gas pattern is normal. Phlebol iths are noted in the pelvis. A suture line is noted in the right mid abdomen. There is a 7 mm stone of the left kidney. IMPRESSION: 1. Mild lumbar spondylosis without acute findings or significant interval change. Reviewed, dictated and finalized at location A. IMPRESSION: 1. Mild lumbar spondylosis without acute findings or significant interval rodriguez rafael
== END 2022-02-16 10:37 | disposition home or self-care (01) ==
LOC: ANHIMG 10:39
PROVIDERS: PCP Family Medicine; Visit Provider Nurse Practitioner Gerontology
DX: M47.816 Spondylosis without myelopathy or radiculopathy, lumbar region (principal); N20.0 Calculus of kidney
CPT/HCPCS: 72110

== ENCOUNTER → 2023-05-06 08:37 | Outpatient (CLI) | payer MEDICARE, OTHER, SELFPAY ==
--- NOTE | ~2023-05-06 | MR_ITS ---
MRI of the left knee Clinical history: Meniscal tear Technique: Coronal proton density and proton density-weighted images, sagittal proton-density and T2 fat-sat images, and axial proton-density fat-saturated images were acquired. Findings: Anterior and posterior cruciate ligaments are intact. Medial collateral ligament and the la teral collateral ligament complex are intact. Popliteus tendon is intact. There is complex tearing of the body segment of the medial meniscus. No lateral meniscal tear seen. There are small focal high-grade chondromalacia at the medial femoral condyle with focal subchondral cystic change. There is extensive marrow edema in the medial femoral condyle. No definite insufficien cy fracture seen. Articular cartilage in the lateral compartment is well preserved. There is high-gra de chondromalacia along the medial patellar facet. Femoral trochlear cartilage is well preserved. Extensor mechanism is intact. Small joint effusion is present. No Cerda's cyst. Impression: Complex tearing of the body segment medial meniscus. Focal high-grade chondromalacia the medial femoral condyle focal subchondral cystic change. More extensive reactive marrow edema in the medial femoral condyle, consistent with stress response o r bone contusion. No subchondral insufficiency fracture evident at this time. High-grade chondromalacia along the medial patellar facet. Small joint effusion. Reviewed, dictated and finalized at location . Impression: Complex tearing of the body segment medial meniscus. Focal high-grade chondromalacia the medial femoral condyle focal subchondral cy stic change. More extensive reactive marrow edema in the medial femoral condyle, consistent with stress response or bone contusion. No subchondral insufficiency fracture e vident at this time. High-grade chondromalacia along the medial patellar facet. Small joint effusion.
== END ==
PROVIDERS: PCP Family Medicine; Visit Provider Orthopaedic Surgery
DX: S83.232A Complex tear of medial meniscus, current injury, left knee, initial encounter (principal); M94.262 Chondromalacia, left knee; X58.XXXA Exposure to other specified factors, initial encounter
CPT/HCPCS: 73721

== ENCOUNTER 2023-08-31 07:56 | Outpatient (CLI) | payer MEDICARE, OTHER, SELFPAY ==
[2023-08-31 08:34] LABS: Basophils Percent Auto 0.6 % (0.2-1.2); Eosinophils Absolute Auto 0.1 K/mm3 (0-0.3); Hematocrit 42.8 % (42.0-52.0); Immature Granulocyte Absolute 0.05 K/mm3 (0.00-0.031); Immature Granulocyte Percent A 0.7 % (0-0.5); Lymphocytes Absolute Auto 2.37 K/mm3 (0.9-3.2); Lymphocytes Percent Auto 34.5 % (18.3-44.2); Mean Corpuscular HGB Conc 32.7 g/dl (32-36); Mean Corpuscular Hemoglobin 30.7 pg (26-34); Mean Corpuscular Volume 93.9 fl (80-100); Mean Platelet Volume 11.3 fl (7.4-10.4); Monocytes Absolute Auto 0.5 K/mm3 (0.1-0.6); Monocytes Percent Auto 7.3 % (2.6-8.5); Neutrophils Absolute Auto 3.8 K/mm3 (1.3-6.7); Neutrophils Percent Auto 54.9 % (45.5-73.1); Platelet Count Result 209 k/mm3 (150-375); Red Blood Count 4.56 M/mm3 (4.6-6.20); Red Cell Distribution Width 12.7 % (11.5-14.5); White Blood Count 6.9 K/mm3 (4.5-10.0)
[2023-08-31 08:46] LABS: Alanine Aminotransferase 32 U/L (6-50); Albumin Level 4.3 g/dL (3.5-5.1); Alkaline Phosphatase 57 U/L (38-126); Anion Gap 6 mmol/L (8-16); Aspartate Amino Transferase 35 U/L (17-59); Bilirubin,Total 0.5 mg/dL (0.2-1.3); Blood Urea Nitrogen 14 mg/dL (9-20); Carbon Dioxide 26 mmol/L (22-30); Chloride 108 mmol/L (98-107); Estimated Glomerular Filt Rate > 60; Glucose 147 mg/dL (65-110); Potassium 4.1 mmol/L (3.4-5.0); Sodium 140 mmol/L (137-145)
[2023-08-31 08:57] LABS: Hemoglobin A1C 6.4 % (<5.7)
== END 2023-08-31 07:57 | disposition home or self-care (01) ==
PROVIDERS: PCP Family Medicine; Visit Provider Physician Assistant
DX: E78.2 Mixed hyperlipidemia (principal); R73.03 Prediabetes; R73.09 Other abnormal glucose
CPT/HCPCS: 36415; 80053; 82652; 83036; 85025

== ENCOUNTER 2024-04-17 09:33 | Outpatient (CLI) | payer MEDICARE, OTHER, SELFPAY ==
[2024-04-17 10:07] LABS: Basophils Percent Auto 0.4 % (0.2-1.2); Eosinophils Absolute Auto 0.1 K/mm3 (0-0.3); Eosinophils Percent Auto 1.6 % (0-4.4); Hematocrit 46.9 % (42.0-52.0); Hemoglobin 15.2 g/dL (14.0-18.0); Immature Granulocyte Absolute 0.02 K/mm3 (0.00-0.031); Immature Granulocyte Percent A 0.3 % (0-0.5); Lymphocytes Absolute Auto 1.91 K/mm3 (0.9-3.2); Lymphocytes Percent Auto 27.4 % (18.3-44.2); Mean Corpuscular HGB Conc 32.4 g/dl (32-36); Mean Corpuscular Hemoglobin 30.6 pg (26-34); Mean Corpuscular Volume 94.4 fl (80-100); Mean Platelet Volume 11.4 fl (7.4-10.4); Monocytes Absolute Auto 0.6 K/mm3 (0.1-0.6); Neutrophils Absolute Auto 4.3 K/mm3 (1.3-6.7); Neutrophils Percent Auto 62.3 % (45.5-73.1); Platelet Count Result 187 k/mm3 (150-375); Red Blood Count 4.97 M/mm3 (4.6-6.20); Red Cell Distribution Width 13.2 % (11.5-14.5)
[2024-04-17 10:17] LABS: Alanine Aminotransferase 31 U/L (6-50); Albumin Level 4.6 g/dL (3.5-5.1); Alkaline Phosphatase 69 U/L (38-126); Anion Gap 7 mmol/L (4-12); Aspartate Amino Transferase 30 U/L (17-59); Bilirubin,Total 0.9 mg/dL (0.2-1.3); Blood Urea Nitrogen 20 mg/dL (9-20); Calcium 9.4 mg/dL (8.4-10.2); Carbon Dioxide 27 mmol/L (22-30); Chloride 107 mmol/L (98-107); Cholesterol 132 mg/dL (0-200); Estimated Glomerular Filt Rate > 60; Glucose 94 mg/dL (65-110); HDL Direct 51 mg/dL; Potassium 4.2 mmol/L (3.4-5.0); Sodium 141 mmol/L (137-145); Triglycerides 120 mg/dL (<150)
[2024-04-17 10:28] LABS: LDL Cholesterol Direct 66 mg/dL
[2024-04-17 10:31] LABS: Hemoglobin A1C 5.4 % (<5.7)
[2024-04-17 10:31] LABS: Appearance Urine Clear (Clear); Bacteria Urine None Seen /hpf; Bilirubin Urine Negative (Negative); Blood Urine 3+ (Negative); Color Urine Yellow (Yellow); Glucose Urine UA 3+ mg/dL (Negative); Ketones Urine Trace mg/dL (Negative); Leukocyte Esterase Ur Negative LEU/UL (Negative); Need Manual Microscopic Reviewed; Nitrate Urine Negative (Negative); Non Pathogenic Casts 0-2; Protein Urine Negative (Negative); Specific Grav Ur 1.024 (1.001-1.035); Squamous Epithelial Cell Urine Occasional /hpf (Few); Urobilinogen Urine 0.2 mg/dL (<2.0)
[2024-04-17 10:36] LABS: Creatinine Urine 109.1 mg/dL
[2024-04-17 10:38] LABS: Add Urine Microscopic? YES
[2024-04-17 10:41] LABS: MALB Creatinine Ratio 44.1 mg/g (0-30); Microalbumin Urine Random 48.1 mg/L (0-16.7)
== END 2024-04-17 09:34 | disposition home or self-care (01) ==
PROVIDERS: PCP Family Medicine; Visit Provider Family Medicine
DX: R35.0 Frequency of micturition (principal); I10 Essential (primary) hypertension; E11.9 Type 2 diabetes mellitus without complications; E78.2 Mixed hyperlipidemia
CPT/HCPCS: 36415; 80053; 80061; 81001; 82043; 83036; 85025; 87086

== ENCOUNTER 2024-04-21 12:32 | Outpatient (CLI) | payer MEDICARE, OTHER, SELFPAY ==
--- NOTE | ~2024-04-21 | CT_ITS ---
CT abdomen pelvis wo con Ordering provider: Tricia Rodriguez MD History: 68 years Male with . R31.9 - Hematuria, unspecified . Comparison: December 26, 2019 Technique: CT abdomen and pelvis without IV and without oral contrast.Radiation reduction technique u tilized. DLP is 258.82 mGy. Findings: VISUALIZED LOWER CHEST: Normal. UPPER ABDOMINAL ORGANS: Liver: Normal. Gallbladder: Normal. Spleen: Normal. Stomach/duodenum: Normal. Pancreas: Normal. Adrenals: Normal. Kidneys: Tiny stone in the right kidney midpole. Tiny stone in the left kidney upper pole. Left hydro nephrotic changes with a stone measuring 6 mm seen in the left upper ureter. PELVIC ORGANS: The bladder is normal. Enlarged prostate. BOWEL AND MESENTERY: Colon: Mild sigmoid diverticulosis without diverticulitis. Normal appendix. Small Bowel: Normal. No obstruction. Postoperative changes seen in the right upper quadrant area with areas of dense soft tissue density measuring 6 x 0.8 x 3.3 cm. Focal dilatation of the small bowel i s possible clinical correlation and follow-up advised. This area is not seen in the previous examinat ion. Peritoneum/mesentery: No free air or free fluid. No mesenteric lymphadenopathy. RETROPERITONEUM: Mild atheromatous disease of the abdominal aorta. No retroperitoneal lymphadenopat hy. MUSCULOSKELETAL: Superficial soft tissues: The superficial soft tissues are normal. Bones: Age appropriate degenerative changes of the spine. Bilateral sacroiliacs. IMPRESSION: 1. 6 mm stone in the left upper ureter with left hydronephrotic changes. 2. Bilateral tiny renal stones. 3. Soft tissue density in the right upper quadrant which may represent a dilated small bowel bowel w ith postoperative changes. Clinical correlation and follow-up advised. Reviewed, dictated and finalized at location A. IMPRESSION: 1. 6 mm stone in the left upper ureter with left hydronephrotic changes. 2. Bilateral tiny renal stones. 3. Soft tissue density in the right upper quadrant which may represent a dilat ed small bowel bowel with postoperative changes. Clinical correlation and follo w-up advised.
== END 2024-04-21 12:33 | disposition home or self-care (01) ==
LOC: ANHIMG 12:33
PROVIDERS: PCP Family Medicine; Visit Provider Family Medicine
DX: R31.9 Hematuria, unspecified (principal); N13.2 Hydronephrosis with renal and ureteral calculous obstruction; R93.5 Abnormal findings on diagnostic imaging of other abdominal regions, including retroperitoneum
CPT/HCPCS: 74176

== ENCOUNTER 2024-05-26 09:09 | Outpatient (CLI) | payer MEDICARE, OTHER, SELFPAY ==
--- NOTE | ~2024-05-26 | XR_ITS ---
XR abdomen/kub 1V 05/26/2024 09:34 Indication: Left ureteral stone Procedure: KUB Comparison: CT dated 05/26/2024 Findings: There is a left renal stone at the UPJ. There is a surgical anastomosis line in the right u pper abdomen. Bowel gas pattern nonobstructive. Moderate colonic fecal loading. There are pelvic phle boliths. No acute osseous abnormality. Impression: 1: Left UPJ stone. Reviewed, dictated and finalized at location B. Impression: 1: Left UPJ stone.
--- NOTE | ~2024-05-26 | CT_ITS ---
EXAMINATION: CT abdomen pelvis wo con DATE: 05/26/2024 09:30 INDICATION: L ureteral stone TECHNIQUE: Computed tomography (CT) of the abdomen and pelvis was performed without intravenous contr ast. Automated exposure control and iterative reconstruction technique were employed. The dose-length product was 264.54 mGy-cm. COMPARISON: 04/21/2024. FINDINGS: Lower thorax: Unremarkable Liver: Normal. Biliary/Gallbladder: Gallbladder is normal. No bile duct dilation. Pancreas: No mass or duct dilation. Spleen: Normal. Adrenals:No mass. Kidneys: Persistent mild left pelviectasis and caliectasis. Unchanged 12 x 9 mm stone in the left UPJ . Scattered nonobstructing punctate bilateral renal calcifications. GI tract: No small or large bowel dilation. Uncomplicated appearing right upper quadrant small bowel anastomosis. Normal appendix. Diverticulosis without diverticulitis. Mesentery/Peritoneum: No ascites, mass, or free air. Retroperitoneum: No mass. Atherosclerotic abdominal aortic and/or arterial calcifications. Pelvis: Partially distended urinary bladder. Mild prostatomegaly. Soft Tissues: Soft tissues and body wall unremarkable. Bones: No acute osseous finding. IMPRESSION: 12 x 9 mm left UPJ stone causing mild obstructive uropathy. Reviewed, dictated and finalized at location K.
== END 2024-05-26 09:10 | disposition home or self-care (01) ==
LOC: ANHIMG 09:13
PROVIDERS: PCP Family Medicine; Visit Provider Urology
DX: N20.1 Calculus of ureter (principal)
CPT/HCPCS: 74018; 74176

== ENCOUNTER 2024-06-26 13:54 | Outpatient (CLI) | payer MEDICARE, OTHER, SELFPAY ==
--- NOTE | ~2024-06-26 | XR_ITS ---
XR abdomen/kub 1V Ordering provider: Luciano Chester MD History: . LEFT URETERAL STONE . Comparison: May 26, 2024 FINDINGS: BOWEL: Nonobstructive bowel gas pattern. ORGANOMEGALY: None. SIGNIFICANT PATHOLOGIC CALCIFICATIONS: Left kidney stones. OTHER: No free air is seen under the diaphragm. Postoperative changes in the right renal area. IMPRESSION: NO ACUTE ABDOMINAL FINDINGS. Left kidney stones. Reviewed, dictated and finalized at location A.
== END 2024-06-26 13:55 | disposition home or self-care (01) ==
LOC: ANHIMG 13:57
PROVIDERS: PCP Family Medicine; Visit Provider Urology
DX: N20.1 Calculus of ureter (principal)
CPT/HCPCS: 74018

== ENCOUNTER 2024-07-23 09:46 | Outpatient (CLI) | payer MEDICARE, OTHER, SELFPAY ==
--- NOTE | ~2024-07-23 | XR_ITS ---
3 VIEWS LUMBAR SPINE Ordering provider: Bindu Zuniga PA-C History: . twisting injury 1 week ago lbp . Comparison: February 16, 2022 FINDINGS: VERTEBRAL BODIES: Transitional vertebra. No visible fracture or subluxation. DISK SPACES: Narrowing of the disc C3-4, L4-L5 and L5-S1. Multilevel facet joint disease. SOFT TISSUES: Left kidney stone. IMPRESSION: No acute osseous abnormality lumbar spine. Reviewed, dictated and finalized at location A.
== END 2024-07-23 09:47 | disposition home or self-care (01) ==
PROVIDERS: PCP Family Medicine; Visit Provider Student in an Organized Health Care Education/Training Program
DX: M54.50 Low back pain, unspecified (principal); X50.1XXA Overexertion from prolonged static or awkward postures, initial encounter
CPT/HCPCS: 72100

== ENCOUNTER 2024-10-09 11:23 | Outpatient (CLI) | payer MEDICARE, OTHER, SELFPAY ==
--- NOTE | ~2024-10-09 | US_ITS ---
EXAMINATION: US retroperitoneal comp DATE: 10/09/2024 11:44 INDICATION: Left ureteral stone TECHNIQUE: Multiple ultrasound grayscale images of the kidneys were obtained. COMPARISON: CT abdomen and pelvis dated 05/26/2024 FINDINGS: The right kidney measures 10.9 x 6.3 x 6.2 cm. The left kidney measures 9.5 x 6.2 x 5.8 cm. The kidne ys demonstrate normal echogenicity. Prior left hydronephrosis resolved. There is now no hydronephrosi s in either kidney. No stones identified. The bladder is normal. IMPRESSION: 1. Normal kidneys without hydronephrosis. Reviewed, dictated and finalized at location A. PER BLOCKER
== END 2024-10-09 11:24 | disposition home or self-care (01) ==
LOC: MICIMG 11:24
PROVIDERS: PCP Urology; Visit Provider Urology
DX: N20.1 Calculus of ureter (principal)
CPT/HCPCS: 76770

== ENCOUNTER 2025-04-26 07:38 | Outpatient (CLI) | payer MEDICARE, OTHER, SELFPAY ==
--- OUTSIDE RECORDS SUMMARY | 2025-04-26 07:00 | XMS_ITS | Continuity of Care Document ---
Author Organization [facility] Address [address] [place] [address] Phone Care Team Providers Care Brick Wheeler Name Role Phone Anjali Cabrera Unavailable Unavailable Advance Directives Directive Yes / No Effective Date File Name No Information Encounters Encounter Description Practice Location Reason(s) For Visit Diagnoses Date Provider Providers Copied on Encounter [facility], [address], [place], [place], [id number], [place] tel:[phone] [facility] No Information Sep-0 5-200 6 Deborah Alba. [address] , [address], [place], [address], [place]. tel:[phone] Family History Family Member Type Diagnosis Age At Onset No Information Payers Payer name Insurance type Covered green party ID Authoriza tion(s) No Information Social History Type Description Quantity Date Captured Comments Sex Male Smoking Status No Information Chief Complaint And Reason For Visit No Information Reason For Referral Reason For Referral No Information History Of Present Illness Encounter Date Complaint History Of Prese nt Illness No Information Functional Status Date Functional Assessmen t No Information Instructions Date Instruction Additional Infor mation No Information Assessments Type Assessment Date No Information Patient Care Teams Name Effective Dates (start - stop) Status Members No Information
[2025-04-26 07:37] LABS: Add Urine Microscopic? NO; Appearance Urine Clear (Clear); Bilirubin Urine Negative (Negative); Blood Urine Negative (Negative); Color Urine Yellow (Yellow); Glucose Urine UA 3+ mg/dL (Negative); Ketones Urine 3+ mg/dL (Negative); Leukocyte Esterase Ur Negative LEU/UL (Negative); Nitrate Urine Negative (Negative); Protein Urine Negative (Negative); Specific Grav Ur 1.032 (1.001-1.035); Urobilinogen Urine 0.2 mg/dL (<2.0)
--- OUTSIDE RECORDS SUMMARY | 2025-04-26 07:41 | XMS_ITS | Continuity of Care Document ---
Author Organization [facility] Address [address] [place] [address] Phone Care Team Providers Care Drag Sawyer Name Role Phone Anjali Cabrera Unavailable Unavailable Advance Directives Directive Yes / No Effective Date File Name No Information Encounters Encounter Description Practice Location Reason(s) For Visit Diagnoses Date Provider Providers Copied on Encounter [facility], [address], [place], [place], [id number], [place] tel:[phone] [facility] No Information Sep-0 5-200 6 Deborah Alba. [address] , [address], [place], [address], [place]. tel:[phone] Family History Family Member Type Diagnosis Age At Onset No Information Payers Payer name Insurance type Covered constitution party ID Authoriza tion(s) No Information Social [...]
[2025-04-26 07:43] LABS: Hematocrit 46.4 % (42.0-52.0); Hemoglobin 15.3 g/dL (14.0-18.0); Mean Corpuscular Hemoglobin 30.8 pg (26-34); Mean Corpuscular Volume 93.4 fl (80-100); Mean Platelet Volume 11.5 fl (7.4-10.4); Platelet Count Result 191 k/mm3 (150-375); Red Blood Count 4.97 M/mm3 (4.6-6.20); White Blood Count 9.2 K/mm3 (4.5-10.0)
[2025-04-26 08:03] LABS: Alanine Aminotransferase 35 U/L (6-50); Albumin Level 4.5 g/dL (3.5-5.1); Alkaline Phosphatase 69 U/L (38-126); Anion Gap 10 mmol/L (4-12); Aspartate Amino Transferase 41 U/L (17-59); Bilirubin,Total 0.5 mg/dL (0.2-1.3); Blood Urea Nitrogen 23 mg/dL (9-20); Calcium 9.1 mg/dL (8.4-10.2); Carbon Dioxide 20 mmol/L (22-30); Chloride 110 mmol/L (98-107); Cholesterol 149 mg/dL (0-200); Estimated Glomerular Filt Rate > 60; Glucose 103 mg/dL (65-110); HDL Direct 52 mg/dL; Potassium 4.4 mmol/L (3.4-5.0); Sodium 140 mmol/L (137-145); Total Protein 7.2 g/dL (6.3-8.2); Triglycerides 116 mg/dL (<150)
[2025-04-26 08:14] LABS: LDL Cholesterol Direct 71 mg/dL
[2025-04-26 08:44] LABS: Hemoglobin A1C 6.2 % (<5.7)
[2025-04-26 09:01] LABS: Prostate Specific Antigen 0.8 ng/mL (< OR = 4.0)
== END 2025-04-26 07:39 | disposition home or self-care (01) ==
PROVIDERS: PCP Family Medicine; Visit Provider Family Medicine
DX: R73.03 Prediabetes (principal); E78.2 Mixed hyperlipidemia; R53.83 Other fatigue; R35.1 Nocturia; Z12.5 Encounter for screening for malignant neoplasm of prostate
CPT/HCPCS: 36415; 80053; 80061; 81003; 83036; 84153; 84443; 85027

== ENCOUNTER 2025-06-06 12:09 | Outpatient (CLI) | payer MEDICARE, OTHER, SELFPAY ==
--- NOTE | 2025-06-06 | ECG_ITS ---
Test Date: 2025-06-06 12:41:07 Measurements Intervals [place] Rate: 63 P: 51 [place]: 272 QRS: 29 QRSD: 90 T: 55 QT: 398 QTc: 410 Interpretive Statements SINUS RHYTHM WITH FIRST DEGREE AV BLOCK BORDERLINE ECG No previous ECG available for comparison Electronically Signed On 06-07-2025 06:23:42 CDT by Kiran Durand D.O.
--- OUTSIDE RECORDS SUMMARY | 2025-06-06 12:13 | XMS_ITS | Continuity of Care Document ---
Author Organization [facility] Address [address] [place] [address] Phone Care Team Providers Care Deck Officer Name Role Phone Anjali Cabrera Unavailable Unavailable Advance Directives Directive Yes / No Effective Date File Name No Information Encounters Encounter Description Practice Location Reason(s) For Visit Diagnoses Date Provider Providers Copied on Encounter [facility], [address], [place], [place], [id number], [place] tel:[phone] [facility] No Information Sep-0 5-200 6 Deborah Alba. [address] , [address], [place], [address], [place]. tel:[phone] Family History Family Member Type Diagnosis Age [...]
--- OUTSIDE RECORDS SUMMARY | 2025-06-06 12:14 | XMS_ITS | Clinical Summary ---
Author Organization [facility] Address [address] [place] [address] Care Team Providers Care Beach Lifeguard Name Role Phone Tricia Rodriguez MD Primary Care Provider [phone] Social History Tobacco Use Types Packs/Day Years Used Date Smoking Tobacco: Never Assessed Sex and Gender Information Value Date Recorded Sex Assigned at Not on file Legal Sex Male 5:12 PM CDT Gender Identity Not on file Sexual Orientation Not on file Plan of Treatment Health Maintenance Due Date Last Done Comments Colorectal Cancer Screening Colonoscopy (10 Years) 1955 Hepatitis C 1971 DTaP, Tdap and Td Vaccines ( 1 - Tdap) 1972 Pneumococcal Vaccine: 50+ Ye ars (1 of 1 - PCV) 2003 Zoster Vaccines (1 of 2) 2003 Annual Medicare Wellness Visit 2018 COVID-19 Vaccine ( - 2023-2 5 season) 2024 RSV Immunization or 60+ Years (1 - 1-dose 75+ series) 2028 Meningococcal B Vaccine Aged Out No l onger eligible based on patient's age to complete this topic Meningococcal Vaccine Aged Out No mckayla macrina eligible based on patient's age to complete this topic RSV Immunizations Under 20 Months Aged Out No longer eligible based on patient's age to complete this topic Insurance MEDICARE [employer] Care Teams [place] Lifeguard Relationship Specialty Start Date End Date Tricia Rodriguez MD [address] [place] [address] PCP - General FAMILY PRACTICE 06/30/19
== END 2025-06-06 12:10 | disposition home or self-care (01) ==
PROVIDERS: PCP Family Medicine; Referring Provider Podiatrist Foot & Ankle Surgery
DX: Z01.818 Encounter for other preprocedural examination (principal); R94.31 Abnormal electrocardiogram [ECG] [EKG]; R03.0 Elevated blood-pressure reading, without diagnosis of hypertension; E55.9 Vitamin D deficiency, unspecified
CPT/HCPCS: 36415; 82306; 93005

== ENCOUNTER 2025-06-27 07:07 | Outpatient (CLI) | payer MEDICARE, OTHER, SELFPAY ==
[2025-06-27 07:57] LABS: Alanine Aminotransferase 35 U/L (6-50); Albumin Level 4.4 g/dL (3.5-5.1); Alkaline Phosphatase 65 U/L (38-126); Anion Gap 8 mmol/L (4-12); Aspartate Amino Transferase 32 U/L (17-59); Bilirubin,Total 0.7 mg/dL (0.2-1.3); Blood Urea Nitrogen 24 mg/dL (9-20); Calcium 9.3 mg/dL (8.4-10.2); Carbon Dioxide 24 mmol/L (22-30); Chloride 107 mmol/L (98-107); Estimated Glomerular Filt Rate > 60; Glucose 123 mg/dL (65-110); Potassium 4.1 mmol/L (3.4-5.0); Sodium 139 mmol/L (137-145); Total Protein 7.0 g/dL (6.3-8.2)
== END 2025-06-27 07:08 | disposition home or self-care (01) ==
PROVIDERS: PCP Family Medicine; Visit Provider Podiatrist Foot & Ankle Surgery
DX: Z01.818 Encounter for other preprocedural examination (principal)
CPT/HCPCS: 36415; 80053